=== PATIENT | female | born 1935 | race Caucasian/White ===

== ENCOUNTER 2018-03-04 23:14 | Observation (INO) | payer MEDICARE ==
--- NOTE | 2018-03-05 00:58 | PDOC.FPRHP ---
- History of Present Illness Chief Complaint: left sided numbness History of Present Illness: 82 female presents for evaluation of her 1 day history of left sided numbness. She states the numbness began Monday night around 10:30 PM. She did not mention this to anyone until later in the day on Monday. Her family then convinced her to be evaluated in the ER. She describes the numbness as similar to the anesthetic you receive with dental work. She states the feeling has improved. She notes that she has not had headaches, vision changes, chest pain, n/v/d, fevers, chills, or recent illness. She states that she has had no weakness or trouble walking since this began. No other complaints today. ED Course: Hydralazine Aspirin - Allergies/Adverse Reactions Allergies Allergy/AdvReac Type Severity Reaction Status Date / Time No Known Allergies Allergy Verified 07/20/16 14:16 - Home Medications Medication Instructions Recorded Confirmed Type Gabapentin [Neurontin] 900 mg PO HS 07/20/16 03/05/18 History Lactobacillus Acidophilus 1 capsule PO HS 07/20/16 03/05/18 History [Probiotic] Liraglutide [Victoza 2-Jesus Alberto] 0.6 mg SC HS 07/20/16 03/05/18 History Loperamide HCl [Imodium A-D] 2 mg PO PRN PRN 07/20/16 03/05/18 History Omeprazole 20 mg PO QPM 07/20/16 03/05/18 History diphenhydrAMINE [Benadryl] 25 mg PO Q6HR PRN 07/20/16 03/05/18 History hydrALAZINE HCl 50 mg PO BID 07/20/16 03/05/18 History Furosemide [Lasix] 20 mg PO DAILY PRN 07/23/17 03/05/18 History Aspirin [Ecotrin] 81 mg PO DAILY 03/05/18 03/05/18 History Enalapril Maleate [Vasotec] 5 mg PO BID 03/05/18 03/05/18 History busPIRone HCl [Buspar] 15 mg PO BID 03/05/18 03/05/18 History - History PMHx: DM2, HLD, HTN, CHF, HTN, CKD, Neuropathy. PSHx: 3 hip replacements, bilateral knee replacements, appendectomy. FHx: Non-contributory Social: Patient lives alone with her cat. She has two adult children. She denies tobacco, alcohol, or drug use. - Review of Systems General: denies: fever/chills, weight/appetite/sleep changes Eyes: denies: eye pain ENT: denies: nasal congestion Respiratory: denies: cough, congestion, shortness of breath Cardiovascular: denies: chest pain, palpitation, edema Gastrointestinal: denies: nausea, vomiting, diarrhea, constipation Genitourinary: denies: incontinence Skin: denies: rashes, lesions, jaundice Musculoskeletal: denies: pain, tenderness, stiffness, swelling Neurological: reports: numbness. denies: weakness Psychological: denies: anxiety, depression - Vital signs BP: [161/80] HR: [89] RR: [17] Tmax: [98.1] Pox: [94]% on [RmAir] Wt: [108 kg ] - Physical Exam Constitutional: NAD, awake, alert and oriented HEENT: normocephalic and atraumatic, grossly normal vision, TM's clear and intact, grossly normal hearing, normal nasal mucosa, MMM Neck: supple, trachea midline Chest: no-tender to palpation Heart: RRR, normal S1/S2, no murmurs/rubs/gallops, pulses present -Heart: trace edema bilaterally Lungs: CTAB, no respiratory distress, good air movement, no rales/rhonchi, no wheezing Abdomen: soft, non-tender, bowel sounds present, no masses/distention Musculoskeletal: normal structure, normal tone, ROM grossly normal Neurological: no focal deficit, CN II-XII intact, other (Patient has numbness to upper and lower extremity as well as face on LEFT. Motor neuro exam WNL. No deficits on neuro testing other than sensation.) Skin: no rash/lesions, good turgor, capillary refill <2 seconds Heme/Lymphatic: no unusual bruising or bleeding, no purpura Psychiatric: normal mood and affect, good judgment and insight, intact recent and remote memory FMR H&P: A/P - Problem List (1) TIA (transient ischemic attack) Current Visit: Yes Status: Acute (2) CKD (chronic kidney disease) stage 3, GFR 30-59 ml/min Current Visit: Yes Status: Acute Code(s): N18.3 - CHRONIC KIDNEY DISEASE, STAGE 3 (MODERATE) (3) HLD (hyperlipidemia) Current Visit: Yes Status: Acute Code(s): E78.5 - HYPERLIPIDEMIA, UNSPECIFIED (4) HTN (hypertension) Current Visit: Yes Status: Acute Code(s): I10 - ESSENTIAL (PRIMARY) HYPERTENSION (5) CHF (congestive heart failure) Current Visit: Yes Status: Acute Code(s): I50.9 - HEART FAILURE, UNSPECIFIED (6) Diabetes mellitus Current Visit: No Status: Chronic Code(s): E11.9 - TYPE 2 DIABETES MELLITUS WITHOUT COMPLICATIONS Qualifiers: Diabetes mellitus type: type 2 Diabetes mellitus terminal block assembler insulin use: without terminal block assembler use Diabetes mellitus complication status: with unspecified complications Qualified Code(s): E11.8 - Type 2 diabetes mellitus with unspecified complications - Plan 1) TIA v. CVA r/o - CT head negative. - CTA head/neck, echo, and MRI ordered. - Will also check TSH, Mg, Phos, B12/folate. - Neuro checks q4h. - Cont. ASA, start statin. - Consult neuro 2) T2DM - continue home regimen, - accuchecks AC/HS - check A1c 3) HTN - permissive HTN x 24 hrs 4) HLD - check lipids - start statin 5) CHF - getting echo, - cont. HMs 6) CKDIII - renal fxn appears at baseline - Continue home meds CODE STATUS: FULL CODE Disposition: Stable, Will admit to Observation Stroke. FMR H&P: Upper Level - Pertinent history 82 yo CF pmhx T2DM w/ retinopathy and nephropathy (CKDIII at baseline), HTN, HLD , CHF, and known vascular dz (h/o ischemic colitis) p/w approx 48 hrs of L sided numbness. Pt states that symptoms came on acutely and affected her left face, arm and leg. Denies any obvious weakness but states that it was harder to do things than normal because of the sensation of her limbs "being asleep." Denies any facial droop, speech slurring, gait changes, seizure, JARA, LOC, or head trauma. She has never had similar symptoms before. She is on a daily aspirin but it does not appear that she is on a statin. She only came into the ER because her daughter asked her to. Numbness is somewhat improved tonight but still present. - Pertinent findings Gen: AAO x3, NAD Neck: no bruits CV: RRR, no m/g/r Lungs: CTAB Ext: trace edema b/l, no clubbing or cyanosis, no evidence of DVT Neuro: strength 5/5 b/l upper and lower extremities, CN II-XII intact, subjective decreased sensation to light touch on left side, negative romberg Pulses: 2+ DPs b/l - Plan Date/Time: 03/05/18 0057 I, Justin Lyons MD, have evaluated this patient and agree with findings/plan as outlined by music industry internship resident. Pertinent changes/additions are listed here. 82 yo CF with: 1) Suspected acute neurovascular syndrome, TIA v. CVA r/o: Place in observation to stroke. CT head negative. CTA head/neck, echo, and MRI ordered. Will also check TSH, Mg, Phos, B12/folate. EKG showed 1st degree AV block, LVH, incomplete LBBB, and left axis deviation but no arrhythmias. Neuro checks q4h. Cont. ASA, start statin. Consult neuro. 2) T2DM: continue home regimen, accuchecks AC/HS, check A1c 3) HTN: permissive HTN x 24 hrs 4) HLD: check lipids, start statin 5) CHF: getting echo, cont. HMs 6) CKDIII: renal fxn appears at bedside DVT ppx: lovenox Attending Addendum - Attending Addendum Date/Time: 03/05/18 1052 I personally evaluated the patient and discussed the management with Dr. Kat and Dr. Hansen. I agree with the History, Examination, Assessment and Plan documented above with any addition or exceptions noted below. Patient with MRI showing subacute right thalamic lesion c/w symptoms. Neuro consulted, will evaluate. CTA of carotids ordered. Will cont ASA, start statin , control BP, and consider adding Plavix based on neuro recs. Physical and speech therapy initiated.
[2018-03-05] MEDS ORDERED: Dextrose 50% Abboject 50 ML SYRINGE SLOW IVP PRN (02:29)
[2018-03-05] MEDS ORDERED: Ondansetron ODT 4 MG TAB PO PRN (02:29)
[2018-03-05] MEDS ORDERED: Acetaminophen 325 MG TAB PO PRN (02:29)
[2018-03-05] MEDS ORDERED: HumaLOG 300 UNITS/3 ML VIAL SC PRN (02:29)
[2018-03-05] MEDS ORDERED: Dextrose 5% in Water 1,000 ML IV PRN (02:29)
[2018-03-05 02:42] VITALS: BMI 40.9
[2018-03-05] MEDS ORDERED: diphenhydrAMINE 25 MG CAP PO PRN (03:05)
[2018-03-05] MEDS ORDERED: Loperamide HCl 2 MG CAP PO PRN (03:05)
[2018-03-05 03:12] LABS: Magnesium 1.8 mg/dL (1.6-2.6); Phosphorus 3.2 mg/dL (2.3-4.7)
[2018-03-05 04:45] LABS: Cardiac Risk 4.4 (Less than 4.5)
[2018-03-05 05:35] LABS: Hemoglobin A1c 6.7 % (4.0-6.0)
[2018-03-05 06:40] LABS: Folate (Folic Acid) 4.6 ng/mL (7.0-31.4)
[2018-03-05] MEDS: Aspirin 81 mg Enteric Coated Tablet PO SCH (09:24)
[2018-03-05] MEDS: busPIRone HCl 10 MG TAB PO SCH ×2 (09:24→20:41)
[2018-03-05] MEDS: Folic Acid 1 MG TAB PO SCH (09:24)
[2018-03-05] MEDS: Enoxaparin Sodium 40 MG/0.4 ML SYRINGE SC SCH (09:25)
--- NOTE | 2018-03-05 09:26 | MRI ---
MRI OF THE BRAIN WITHOUT IV CONTRAST: INDICATION: History of TIAs and altered mental status. COMPARISON: CT of the brain dated 03/04/18 at 9:05 p.m. TECHNIQUE: Multiplanar, multisequence MR images were obtained of the brain without IV contrast. FINDINGS: There is a small focus of restricted diffusion with associated T2 hyperintensity involving the right mid thalamus on image 15 of series 3 consistent with a subacute lacunar infarct. This is superimpose d on mild chronic small-vessel white matter ischemic change. The septum pellucidum and third ventric le are midline. No intracranial hemorrhage is demonstrated. The skull and extracranial soft tissues appear within normal limits. There is a small mucous retention cyst seen within the inferior aspect of the right maxillary sinus. There are appropriate flow voids seen within the major intracranial v essels. IMPRESSION: 1. Subacute lacunar infarction involving the right thalamus. 2. Findings were called to Sadie Santizo RN at 9:50 a.m. on 03/05/18. CODE CR POS: JUAN JOSÉ
--- NOTE | 2018-03-05 13:20 | ULT ---
BILATERAL CAROTID DUPLEX ULTRASOUND: DATE: 03/05/18 HISTORY: CVA. TIA. TECHNIQUE: Hall scale ultrasound with color flow and spectral Doppler imaging of the extracranial carotid artery systems performed bilaterally. FINDINGS: There is plaque formation on either side. The peak systolic velocity in the right ICA measures 106 cm/second with an end-diastolic velocity of 25 cm/second and a systolic ratio of 1.91. The peak systolic velocity in the left ICA measures 88 cm/second with an end-diastolic velocity of 19 cm/second and a systolic ratio of 1.24. Flow in both vertebral arteries remains antegrade. IMPRESSION: No evidence of hemodynamically significant stenosis. POS: JUAN JOSÉ
[2018-03-05] MEDS ORDERED: Furosemide 20 MG TAB PO PRN (20:50)
[2018-03-05] MEDS ORDERED: Labetalol HCl 100 MG/20 ML VIAL SLOW IVP PRN (20:59)
[2018-03-05] MEDS ORDERED: Atorvastatin Calcium 40 MG TAB PO SCH (21:00)
[2018-03-05] MEDS ORDERED: (Liraglutide [Victoza 2-Pak] 0.6 MG) SC SCH (21:00)
[2018-03-05] MEDS ORDERED: Lactinex Tablet PO SCH (21:00)
[2018-03-05] MEDS ORDERED: Gabapentin 300 MG CAP PO SCH (21:00)
[2018-03-05] MEDS: hydrALAZINE 25 MG TAB PO SCH (21:55)
[2018-03-05] MEDS ORDERED: Lorazepam 0.5 MG TAB PO PRN (22:57)
--- NOTE | 2018-03-05 23:36 | CON ---
DATE OF CONSULTATION: 03/05/2018 REFERRING PROVIDER: Bryson Kat M.D. REASON FOR CONSULTATION: Left-sided numbness. HISTORY OF PRESENT ILLNESS: Ms. Warner is a pleasant 82-year-old female who has been consulte d for evaluation of left-sided numbness. She reports that on Monday night around 10:30 p.m., she h ad noted sudden onset of left-sided numbness and tingling, this was present from left side of the fac e, arm and leg. She also felt somewhat weaker on her left upper and lower extremity. This prompted her to present to the [facility]. She reports that her weakness, numbness and tinglin g is improving. She denied any vision changes. She denied diplopia, dysarthria, dysphagia, facial d melissa, difficulty with balance, chest pain, palpitation, lightheadedness, or dizziness. PAST MEDICAL HISTORY: Significant for hypertension, diabetes, hyperlipidemia, congestive heart failu re, chronic kidney disease, and neuropathy. PAST SURGICAL HISTORY: Significant for 3 hip replacement surgeries, bilateral knee replacements, rian endectomy. FAMILY HISTORY: Noncontributory. SOCIAL HISTORY: She denies smoking, alcohol use, or illicit drug use. She lives alone. CURRENT MEDICATIONS: Please review MAR. ALLERGIES: No known drug allergies. REVIEW OF SYSTEMS: As mentioned in the HPI, otherwise negative. PHYSICAL EXAMINATION: VITAL SIGNS: Blood pressure of 182/93, pulse of 80, temperature of 97.8, respirations of 16, and O2 sats 93% on room air. GENERAL: Well-developed, well-nourished female in no apparent distress. RESPIRATORY: Clear to auscultation bilaterally. CARDIOVASCULAR: Regular rate and rhythm. NEUROLOGIC: Mental status: The patient is awake, alert, oriented x3. Speech and language: Fluent speech. Cranial nerves: Pupils are 3 mm and reactive. Visual vargas are intact. External muscles are intact. No nystagmus noted. Face is symmetric. Tongue and uvula are midline. Motor exam showe d normal tone and bulk with 5/5 strength in both upper and lower extremities. No pronator drift note d. Sensory: Sensation is intact and symmetric. Deep tendon reflexes are 2+ reflexes in both upper and lower extremities. Babinski: Plantar responses flexion bilaterally. Coordination intact to fin [id number] and finger tapping bilaterally. LABORATORY DATA: Labs are reviewed, which included CBC, coag panel, CMP, which is significant for BU N of 26, creatinine of 1.26, glucose of 182. Total cholesterol of 207, LDL of 131, HDL of 47 and fol ic acid of 4.6, otherwise unremarkable. IMAGING STUDIES: MRI brain without contrast was reviewed, which showed small subacute right thalamic lacunar infarct. Carotid Doppler results were reviewed, which showed no hemodynamically significant stenosis. IMPRESSION: 1. Subacute right thalamic ischemic infarct. 2. Left-sided numbness and weakness converted to #1. 3. Malignant hypertension. Ms. Warner is a pleasant 82-year-old female who presented with 1 day history of left-sided num bness and weakness. She is found to have subacute lacunar infarct involving the right thalamic regio n. This is likely secondary to poorly controlled hypertension. At this time, I will recommend start treating of her blood pressure with a goal 120 to 140 systolic and 80 to 85 diastolic. I discussed about starting her back on aspirin 325 mg daily for secondary stroke prevention; however, she reports that recently she has been having abdominal pain, has been undergoing extensive workup by GI special ist and because of that reason, she has been asked to decrease the dose of aspirin to 81 mg. I have advised her that once the workup is completed and there is no gastritis or gastric ulcers, then she m ay need to be started back on aspirin 325 mg daily for secondary stroke prevention. Thank you for your consultation.
[2018-03-06] MEDS ORDERED: Labetalol HCl 100 MG/20 ML VIAL SLOW IVP PRN (04:57)
[2018-03-06 06:43] LABS: Cardiac Risk 4.6 (Less than 4.5)
--- NOTE | 2018-03-06 07:25 | EKG ---
Test Reason : Blood Pressure : / mmHG Vent. Rate : 077 BPM Atrial Rate : 077 BPM P-R Int : 264 ms QRS Dur : 108 ms QT Int : 386 ms P-R-T Axes : 052 -28 098 degrees QTc Int : 436 ms Sinus rhythm with 1st degree A-V block Abnormal QRS-T angle, consider primary T wave abnormality Abnormal ECG When compared with ECG of 24-JUL-2017 04:56, Criteria for Septal infarct are no longer Present T wave inversion no longer evident in Anterior leads QT has shortened Confirmed by DR. Janice MARQUEZ ([id number]) on 03/06/2018 7:25:08 AM Referred By: MELISSA Confirmed By:DR. Janice MARQUEZ
[2018-03-06] MEDS: busPIRone HCl 10 MG TAB PO SCH (08:28)
[2018-03-06] MEDS: hydrALAZINE 25 MG TAB PO SCH (08:29)
[2018-03-06] MEDS: Folic Acid 1 MG TAB PO SCH (08:30)
[2018-03-06] MEDS: Aspirin 81 mg Enteric Coated Tablet PO SCH (08:30)
[2018-03-06] MEDS: Enoxaparin Sodium 40 MG/0.4 ML SYRINGE SC SCH (08:31)
--- NOTE | 2018-03-06 08:57 | PDOC.FM ---
- Subjective Subjective: Pt states L sided sx have improved but persist. C/o anxiety mildly relieved with ativan. Has not worked with PT/OT - Objective Vital Signs & Weight: Vital Signs (12 hours) Temp Pulse Resp BP BP BP Pulse Ox 03/06/18 08:29 85 180/100 H 03/06/18 08:00 97.9 F 85 16 180/100 H 96 03/06/18 06:27 163/79 H 03/06/18 03:09 98.3 F 75 16 175/88 H 95 03/06/18 00:17 98.3 F 90 16 134/83 96 03/05/18 22:53 203/112 H 03/05/18 21:55 84 218/125 H Weight Admit Weight 104.78 kg Weight 106.095 kg I&O: 03/05/18 03/06/18 03/07/18 06:59 06:59 06:59 Intake Total 480 2500 Balance 480 2500 <Kunal Hansen - Last Filed: 03/06/18 08:55> - Objective Vital Signs & Weight: Weight Admit Weight 104.78 kg Weight 106.095 kg I&O: 03/06/18 03/07/18 03/08/18 06:59 06:59 06:59 Intake Total 2500 1000 Balance 2500 1000 <Bella Tracey - Last Filed: 03/07/18 07:29> Phys Exam - Physical Examination Constitutional: NAD HEENT: PERRLA, moist MMs, oral pharynx no lesions Neck: no nodes, no JVD, supple Respiratory: no wheezing, no rales, no rhonchi, clear to auscultation bilateral Cardiovascular: RRR, no significant murmur, no rub Gastrointestinal: soft, non-tender, no distention obese Musculoskeletal: no edema, pulses present Neurological: non-focal sensation abnormal on Le side, strength preserved Lymphatic: no nodes Psychiatric: normal affect, A&O x 3 Skin: no rash, normal turgor, cap refill <2 seconds <Kunal Hansen - Last Filed: 03/06/18 08:55> Dx/Plan (1) CVA (cerebral vascular accident) Code(s): I63.9 - CEREBRAL INFARCTION, UNSPECIFIED Status: Acute QualifierTitle: Laterality of affected vessel: right (2) CKD (chronic kidney disease) stage 3, GFR 30-59 ml/min Code(s): N18.3 - CHRONIC KIDNEY DISEASE, STAGE 3 (MODERATE) Status: Acute (3) CHF (congestive heart failure) Code(s): I50.9 - HEART FAILURE, UNSPECIFIED Status: Chronic (4) HLD (hyperlipidemia) Code(s): E78.5 - HYPERLIPIDEMIA, UNSPECIFIED Status: Chronic (5) HTN (hypertension) Code(s): I10 - ESSENTIAL (PRIMARY) HYPERTENSION Status: Chronic (6) Anxiety Code(s): F41.9 - ANXIETY DISORDER, UNSPECIFIED Status: Chronic (7) Hypertensive emergency Code(s): I16.1 - HYPERTENSIVE EMERGENCY Status: Chronic - Plan Plan: # R Thalamic CVA - Will continue low dose ASA until w/u finished for GI issues then increase dose - On Statin - PT/OT # Hypertensive Urgency - Suffers from refractory HTN - Home meds restarted, Labetalol PRN # CAD - Stable, continue home medications # Anxiety - Recieved 1 dose Ativan overnight # DM2 - BG controlled # Hx/o Ischemic Colitis - In progress outpatient workup; no acute issues DVT ppx: lovenox <Kunal Hansen - Last Filed: 03/06/18 08:55> (1) TIA (transient ischemic attack) Status: Acute (2) CKD (chronic kidney disease) stage 3, GFR 30-59 ml/min Code(s): N18.3 - CHRONIC KIDNEY DISEASE, STAGE 3 (MODERATE) Status: Acute (3) HLD (hyperlipidemia) Code(s): E78.5 - HYPERLIPIDEMIA, UNSPECIFIED Status: Chronic (4) HTN (hypertension) Code(s): I10 - ESSENTIAL (PRIMARY) HYPERTENSION Status: Chronic (5) CHF (congestive heart failure) Code(s): I50.9 - HEART FAILURE, UNSPECIFIED Status: Chronic (6) Diabetes mellitus Code(s): E11.9 - TYPE 2 DIABETES MELLITUS WITHOUT COMPLICATIONS Status: Chronic Qualifiers: Diabetes mellitus type: type 2 Diabetes mellitus oil heaterman insulin use: without correction use Diabetes mellitus complication status: with unspecified complications Qualified Code(s): E11.8 - Type 2 diabetes mellitus with unspecified complications <Bella Tracey - Last Filed: 03/07/18 07:29> Attending Addendum - Attending Addendum I personally evaluated the patient and discussed the management with Dr. Hansen on 03/06/18. I agree with the History, Examination, Assessment and Plan documented above with any addition or exceptions noted below. Patient seen and examined by neurology. Agree with plan to continue ASA 81 mg once GI workup is complete. Discussed secondary stroke prevention with patient at length, danish. BP control. BPs elevated this morning, will adjust home meds and monitor. Discharge once improved. <Bella Tracey - Last Filed: 03/07/18 07:29>
[2018-03-06] MEDS ORDERED: Amlodipine 10 MG TAB PO SCH (09:00)
[2018-03-06] MEDS ORDERED: hydrALAZINE 20 MG/ML VIAL SLOW IVP SCH (11:30)
[2018-03-06 11:57] VITALS: TEMP 97.2
--- NOTE | 2018-03-07 01:47 | DIS-2 ---
DATE OF ADMISSION: 03/05/2018 DATE OF DISCHARGE: 03/06/2018. RESIDENT: Kunal Hansen DO ADMITTING ATTENDING: Bella Tracey DO DISCHARGE ATTENDING: Bella Tracey DO CONSULTATIONS: Neurology, Chrissy Kenny MD PRIMARY DIAGNOSIS: Right thalamic cerebrovascular accident. SECONDARY DIAGNOSES: Hypertensive urgency, left-sided numbness and tingling, diabetes, coronary artery disease, anxiety, history of ischemic colitis. DISCHARGE MEDICATIONS: New medications: Atorvastatin 40 mg p.o. at bedtime, folic acid 1 mg p.o. daily. Home medications: Aspirin 81 mg daily, BuSpar 15 mg p.o. b.i.d., Benadryl 25 mg p.o. q.6 hours p.r.n., enalapril 5 mg p.o. b.i.d. , furosemide 20 mg p.o. daily, gabapentin 900 mg p.o. at bedtime, hydralazine 50 mg p.o. b.i.d., loperamide 2 mg p.o. p.r.n., Ativan 0.5 mg p.o. q.4 hours p.r.n., pantoprazole 40 mg p.o. q.p.m. scheduled. HISTORY OF PRESENT ILLNESS AND HOSPITAL COURSE: Ms. Warner is an 82-year-old female who initially presented for evaluation with left-sided numbness and tingling, starting Monday night, 03/05/2018, but did not come into the ER until the next day. Initial CT was negative, but brain MRI revealed a right thalamic ischemic insult. Her symptoms did improve throughout her hospital stay , but they did not resolve. These symptoms included minimal weakness on the left side, but mostly paresthesias. She was evaluated by Neurology, they recommended 325 mg of aspirin; however, she is undergoing outpatient workup for GI bleed and chronic GI issues and evaluation for possibly ischemic colitis. For these reasons and this outpatient workup, neurologist recommended continuing 81 mg of aspirin until that workup was complete and she was cleared to increase to 325 mg of aspirin. She was also started on atorvastatin during this hospital visit. Her hypertensive urgency is a chronic problem. She has very refractive blood pressures that are very difficult to control. She is seen by Dr. Duarte, Cardiology who manages her. She is to follow up with him and her primary care doctor upon discharge. Her blood pressure did improve throughout her hospital stay. DISCHARGE INSTRUCTIONS: 1. Location: Home. 2. Diet: Heart healthy diabetic diet. 3. Activity: As tolerated. 4. Followup: Follow up with her primary care doctor and offset pressman, Dr. Duarte. HILL
[2018-03-07 06:33] VITALS: BP 187/117
== END 2018-03-06 16:12 | disposition home or self-care (01) ==
LOC: ERS 23:14 → 2SE 03-05 00:50
PROVIDERS: ADMIT Family Medicine; ATTEND Family Medicine
DX: I63.9 Cerebral infarction, unspecified (principal); I16.0 Hypertensive urgency; I13.0 Hypertensive heart and chronic kidney disease with heart failure and stage 1 through stage 4 chronic kidney disease, or unspecified chronic kidney disease; E11.22 Type 2 diabetes mellitus with diabetic chronic kidney disease; N18.3 Chronic kidney disease, stage 3 (moderate); I50.9 Heart failure, unspecified; E11.40 Type 2 diabetes mellitus with diabetic neuropathy, unspecified; I25.10 Atherosclerotic heart disease of native coronary artery without angina pectoris; F41.9 Anxiety disorder, unspecified; E78.5 Hyperlipidemia, unspecified
CPT/HCPCS: 70551; 80061 ×2; 82607; 82746; 82962 ×3; 83036; 83735; 84100; 84443; 93005; 93306; 93880; 96372 ×2; 96374; 97139 ×4; 99285; G0378; G8978; G8979; G8980; 36415; 36416; 93010; G9162-GN-CH; G9163-GN-CH; J0360; J1650

== ENCOUNTER 2019-12-13 21:00 | Inpatient (IN) | payer MEDICARE ==
[2019-12-13] MEDS ORDERED: Labetalol HCl 100 MG/20 ML VIAL ONE (21:29)
[2019-12-13 21:45] LABS: #Eosinphils 0.1 thou/uL (0.0-0.7); #Lymphocytes 1.2 thou/uL (1.20-3.40); #Monocytes 1.1 thou/uL (0.11-0.59); #Neutrophils 7.7 thou/uL (1.40-6.50); %Basophils 0.2 % (0.0-1.0); %Eosinophils 1.1 % (0.0-10.0); %Lymphocytes 12.2 % (21.0-51.0); %Monocytes 10.8 % (0.0-10.0); %Neutrophils 75.7 % (42.0-75.0); Mean Corpuscular HGB CONC 32.2 g/dL (32.0-36.0); Mean Corpuscular Hemoglobin 28.4 pg (27.0-31.0); Mean Corpuscular Volume 88.3 fL (78.0-98.0); Platelet Count 213 thou/uL (130-400); Red Blood Cell (RBC) Count 4.56 mill/uL (4.20-5.40); White Blood Cell (WBC) Count 10.1 thou/uL (4.8-10.8)
--- NOTE | 2019-12-13 21:46 | RAD ---
XR Chest 1 View Portable HISTORY: Chest pain COMPARISON: 12/05/2016 FINDINGS: The heart size is at upper limits of normal. The lungs are well expanded without focal area s of consolidation, pneumothorax or pleural effusions. IMPRESSION: No radiographic evidence of acute cardiopulmonary process.
[2019-12-13 22:11] LABS: ALT (SGPT) 11 U/L (8-55); AST (SGOT) 15 U/L (5-34); Albumin 3.7 g/dL (3.4-4.8); Alkaline Phosphatase 99 U/L (40-110); Anion Gap 14 mmol/L (10-20); BUN (Urea Nitrogen) 19 mg/dL (9.8-20.1); Bilirubin, Total 0.5 mg/dL (0.2-1.2); Calc. Creatinine Clearance 0 mL/min (70-130); Calcium 9.7 mg/dL (7.8-10.44); Carbon Dioxide 26 mmol/L (23-31); Chloride 100 mmol/L (98-107); Estimated GFR-MDRD 51; Glucose 149 mg/dL (83-110); Lipase 26 U/L (8-78); Potassium 3.9 mmol/L (3.5-5.1); Protein, Total 6.7 g/dL (6.0-8.3); Sodium 136 mmol/L (136-145)
[2019-12-13 22:32] LABS: CKMB 3.5 ng/mL (0-6.6)
[2019-12-13] MEDS ORDERED: Enoxaparin Sodium 100 MG/ML SYRINGE ONE ×2 (22:43→22:46)
[2019-12-13] MEDS ORDERED: niCARdipine 20MG In NaCl 0 MG/0 ML BAG ONE (22:43)
[2019-12-13] MEDS ORDERED: Enoxaparin Sodium 30 MG/0.3 ML SYRINGE ONE ×2 (22:43→22:46)
[2019-12-13] MEDS ORDERED: Enoxaparin Sodium 60 MG/0.6 ML SYRINGE ONE (22:53)
[2019-12-13] MEDS ORDERED: Nitroglycerin 0.4 MG TAB (25 Tab Bottle) SL PRN (23:20)
--- NOTE | 2019-12-13 23:47 | PDOC.EVN ---
Event Note - Event Note Event Note: [id number]
[2019-12-14 01:11] LABS: Troponin I 0.772 ng/mL (< 0.028)
[2019-12-14 01:27] VITALS: BMI 42.5
[2019-12-14] MEDS: niCARdipine 25 MG in Sodium Chloride 0.9% 250 ML 240 ML IVPB SCH ×2 (01:58→09:04)
--- NOTE | 2019-12-14 03:02 | HP ---
CHIEF COMPLAINT: Chest pain. HISTORY OF PRESENT ILLNESS: Ms. Warner is an 84-year-old female with past medical history of congestive heart failure, hyperlipidemia, hypertension, neuropathy, kidney disease, myocardial infarction, CVA, among others, presents to the emergency room with chest pain that started around 5 p.m. The patient was laying down when pain started. Denies any radiation during episode. The pain is described as pressure in nature. The patient was given 324 mg aspirin and nitroglycerin en route to the ED. In the emergency room, the patient was hypertensive with a blood pressure of 212/101. In the emergency room, the patient was given labetalol 20 mg IV push. Blood pressure remained elevated. The patient is about to be started on IV Cardene drip. Also, the patient was given one dose of subcutaneous Lovenox 1 mg/kg. Troponin was elevated at 0.287. EKG, nonspecific changes. The patient is being admitted to hospital for further management. PAST MEDICAL HISTORY: As mentioned above in History of Present Illness. PAST SURGICAL HISTORY: 1. Bilateral hip replacements. 2. Bilateral knee replacements. 3. Appendectomy. SOCIAL HISTORY: Denies smoking or alcohol drinking or drug abuse. FAMILY HISTORY: Reviewed and noncontributory. ALLERGIES: NO KNOWN ALLERGIES. HOME MEDICATIONS: Please see home medication reconciliation form for updated medications. REVIEW OF SYSTEMS: Review of 14 systems negative except what is mentioned in the History of Present Illness. PHYSICAL EXAMINATION: GENERAL: The patient is awake, alert, in mild distress. VITAL SIGNS: Blood pressure 212/101, pulse is 95, respiratory rate is 16, and temperature 98.3. HEAD AND NECK: Normocephalic, atraumatic. NECK: Supple. No JVD. CHEST: Fair bilateral air entry. HEART: S1, S2. Regular. ABDOMEN: Soft, nontender. Bowel sounds present. NEUROLOGIC: Awake, alert, oriented x3. PSYCHIATRIC: Normal mood. EXTREMITIES: No clubbing or cyanosis. LABORATORY DATA: Troponin 0.287. BNP 133. Chest x-ray, no acute findings. ASSESSMENT: 1. Bkh-[id number] elevation myocardial infarction. 2. Hypertensive emergency. 3. Coronary artery disease. 4. Hyperlipidemia. PLAN: 1. Admit to IMCU. 2. Aspirin. 3. Serial troponins. 4. Lovenox was given in the ED 1 mg/kg. 5. Consult Cardiology for evaluation and further recommendations. 6. Keep the patient n.p.o. after midnight until the patient is evaluated by Cardiology. 7. Reconcile home medications. 8. DVT prophylaxis as appropriate. 9. Expected length of stay, 2 midnights or more. Job ID: [id number]
[2019-12-14 04:15] LABS: Cardiac Risk 2.8 (Less than 4.5)
[2019-12-14 04:19] LABS: Troponin I 0.929 ng/mL (< 0.028)
[2019-12-14 08:55] LABS: #Eosinphils 0.1 thou/uL (0.0-0.7); #Lymphocytes 1.2 thou/uL (1.20-3.40); #Monocytes 0.9 thou/uL (0.11-0.59); #Neutrophils 7.1 thou/uL (1.40-6.50); %Basophils 0.4 % (0.0-1.0); %Lymphocytes 12.6 % (21.0-51.0); %Neutrophils 75.9 % (42.0-75.0); Hemoglobin 12.7 g/dL (12.0-16.0); Mean Corpuscular HGB CONC 32.1 g/dL (32.0-36.0); Mean Corpuscular Hemoglobin 28.3 pg (27.0-31.0); Mean Corpuscular Volume 88.3 fL (78.0-98.0); Mean Platelet Volume 8.5 fL (7.4-10.4); Platelet Count 217 thou/uL (130-400); Red Blood Cell (RBC) Count 4.48 mill/uL (4.20-5.40); White Blood Cell (WBC) Count 9.3 thou/uL (4.8-10.8)
[2019-12-14] MEDS ORDERED: Aspirin 325 mg Enteric Coated Tablet PO SCH (09:00)
[2019-12-14 09:06] LABS: Anion Gap 12 mmol/L (10-20); BUN (Urea Nitrogen) 16 mg/dL (9.8-20.1); Calc. Creatinine Clearance 87 mL/min (70-130); Calcium 9.7 mg/dL (7.8-10.44); Carbon Dioxide 29 mmol/L (23-31); Chloride 101 mmol/L (98-107); Estimated GFR-MDRD 62; Glucose 150 mg/dL (83-110); Potassium 3.7 mmol/L (3.5-5.1); Sodium 138 mmol/L (136-145)
--- NOTE | 2019-12-14 09:56 | CON ---
DATE OF CONSULTATION: HISTORY OF PRESENT ILLNESS: Billy Warner is an 84-year-old female from [place] who was brought to the hospital with chest pain without any associated nausea or vomiting. She was given nitroglycerin and aspirin. The patient has history of hypertension. She has not taken her medication. She is now on Cardene drip in the ICU with a blood pressure 160/68, pulse 76, sats 94%, respiratory rate 17. Denies any shortness of breath. Denies any prior history of pneumonia, TB, or asthma. PAST MEDICAL HISTORY: Previous history of known hypertension, history of previous renal disease, history of previous ID, CVA, neuropathy. PREVIOUS SURGERIES: Hip replacement, knee replacement, appendix. HOME MEDICATIONS: 1. Lasix 40. 2. BuSpar 15. 3. Gabapentin 300 t.i.d. 4. Omeprazole 20. 5. Lisinopril 20. 6. Hydralazine 100, 3 times a day. 7. 25 twice a day. ALLERGIES: NONE. SOCIAL AND FAMILY HISTORY: Unremarkable. REVIEW OF SYSTEMS: Ten-point negative. PHYSICAL EXAMINATION: VITAL SIGNS: As noted once again, pulse 85, blood pressure 160/68, sats 95% on room air, respiratory rate 18. GENERAL: She is in no distress. CHEST: No wheezing or crackles. CARDIAC: Normal S1, S2. No gallops. ABDOMEN: No masses. Troponin was elevated at 0.92, glucose 115. White count 9000. Renal function is normal. BNP is normal. Chest x-ray is unremarkable. Her EKG shows septal infarct, age undetermined. IMPRESSION: 1. Chest pain, rule out coronary syndrome. 2. Hypertension. 3. Obesity. 4. Diabetes. Pulmonary russ, I would restart home medication. Await input from Cardiology. Once she is off the Cardene, she can probably be transferred out of the ICU. This is a consultation note, 70 minutes, 50% direct patient care. Job ID: [id number]
[2019-12-14] MEDS ORDERED: Lisinopril 10 MG TAB PO SCH (10:00)
[2019-12-14] MEDS ORDERED: Amlodipine 10 MG TAB PO SCH (10:00)
[2019-12-14] MEDS ORDERED: Metoprolol Tartrate 25 MG TAB PO SCH (10:00)
[2019-12-14] MEDS ORDERED: hydrALAZINE 25 MG TAB PO SCH (10:00)
--- NOTE | 2019-12-14 10:13 | PDOC.HOSPP ---
- Subjective Encounter Date: 12/14/19 Encounter Time: 10:12 Subjective: Ms. Warner was seen today in follow-up of chest pain and elevated blood pressure. She does not have any complaints this morning. She notes a continued " funny feeling" in her chest, otherwise, no complaints. - Objective Vital Signs & Weight: Vital Signs (12 hours) Temp Pulse Resp BP Pulse Ox 12/14/19 07:00 98.1 F 12/14/19 02:30 98 12/14/19 02:00 98.8 F 12/14/19 00:56 88 20 197/131 H 97 12/14/19 00:50 97.8 F 99 Weight Admit Weight 232 lb 9.403 oz Weight 247 lb 7 oz Most Recent Monitor Data Heart Rate from ECG 68 NIBP 164/90 NIBP BP-Mean 114 Respiration from ECG 15 SpO2 93 I&O: 12/13/19 12/14/19 12/15/19 06:59 06:59 06:59 Intake Total 65 240 Output Total 1250 500 Balance -1185 -260 Result Diagrams: 12/14/19 08:20 12/14/19 08:20 Hospitalist ROS - Medication Medications: Active Medications Generic Name Dose Route Start Last Admin Trade Name Freq PRN Reason Stop Dose Admin Nicardipine HCl 25 mg/ Sodium 250 mls @ 0 mls/hr 12/13/19 23:00 12/14/19 09: 04 Chloride IVPB 250 mls INF NADER Administration Protocol Titrate - Exam Eye: PERRL Heart: RRR, no gallops, no rubs, normal peripheral pulses, murmur present, II/IV Respiratory: CTAB, no wheezes, no rales, no ronchi, normal chest expansion Gastrointestinal: soft, non-tender, non-distended, normal bowel sounds, no palpable masses, no hepatomegaly Extremities: no cyanosis, no clubbing, 1+ LE edema (+ 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 Pulses are palpable but diminished, but good capillary refill.) Hosp A/P (1) Hypertensive urgency Code(s): I16.0 - HYPERTENSIVE URGENCY Status: Acute (2) NSTEMI (non-ST elevated myocardial infarction) Code(s): I21.4 - NON-ST ELEVATION (NSTEMI) MYOCARDIAL INFARCTION Status: Acute (3) Diabetes mellitus Code(s): E11.9 - TYPE 2 DIABETES MELLITUS WITHOUT COMPLICATIONS Status: Chronic Qualifiers: Diabetes mellitus type: type 2 Diabetes mellitus long-term insulin use: without long distance billing operator use Diabetes mellitus complication status: with unspecified complications (4) Diabetic neuropathy Code(s): E11.40 - TYPE 2 DIABETES MELLITUS WITH DIABETIC NEUROPATHY, UNSP Status: Chronic Qualifiers: Diabetes mellitus type: type 2 Diabetes mellitus complication detail: with other neurological complication Qualified Code(s): E11.49 - Type 2 diabetes mellitus with other diabetic neurological complication (5) HTN (hypertension) Code(s): I10 - ESSENTIAL (PRIMARY) HYPERTENSION Status: Chronic - Plan * Hypertensive Urgency- She has been weaned off the Cardene drip. * Plan is to re- start her home medications and titrate * Elevated troponin's- this is likely due to demand ischemia, from elevated blood pressures- however she is at risk for CAD- await Cardiology input * DM-
[2019-12-14] MEDS ORDERED: Dextrose 50% Abboject 50 ML SYRINGE SLOW IVP PRN (10:18)
[2019-12-14] MEDS ORDERED: HumaLOG 300 UNITS/3 ML VIAL SC PRN ×2 (10:18)
[2019-12-14] MEDS ORDERED: Dextrose 5% in Water 1,000 ML IV PRN (10:18)
[2019-12-14] MEDS ORDERED: cloNIDine 0.1 MG TAB PO PRN (10:19)
[2019-12-14] MEDS ORDERED: hydrALAZINE 20 MG/ML VIAL SLOW IVP PRN (10:19)
--- NOTE | 2019-12-14 14:06 | CON ---
DATE OF CONSULTATION: 12/14/2019 REASON FOR CONSULTATION: Malignant hypertension, elevated troponin. HISTORY OF PRESENT ILLNESS: Ms. Warner is a very pleasant 84-year-old woman, who is a patient of Dr. Allan Duarte. She recently presented with markedly elevated blood pressure. She states she did not take her medicines yesterday. She also had associated chest pain. She was placed on Cardene drip and placed in the ICU. She is currently chest pain free with blood pressure somewhat improved. PAST MEDICAL HISTORY: Previous MS, CVA, renal disease, neuropathy, and hypertension. MEDICATIONS: 1. BuSpar. 2. Gabapentin. 3. Omeprazole. 4. Lisinopril. 5. Hydralazine. 6. Lasix. ALLERGIES: NONE. SOCIAL HISTORY: No current tobacco or alcohol use. REVIEW OF SYSTEMS: A 10-point review of systems is reviewed and as above, otherwise negative. PHYSICAL EXAMINATION: GENERAL: Patient is a pleasant woman, who is in no acute distress. The patient appears their stated age. VITAL SIGNS: Blood pressure 116/87, pulse 70, and respirations 20. NEUROLOGIC: The patient is alert and oriented x3 with no focal neurologic deficits. HEENT: Sclerae without icterus. Mouth has moist mucous membranes with normal pallor. NECK: No JVD. Carotid upstroke brisk. No bruits bilaterally. LUNGS: Clear to auscultation with unlabored respirations. BACK: No scoliosis or kyphosis. CARDIAC: Regular rate and rhythm with normal S1 and S2. No S3 or S4 noted. No significant rubs, murmurs, thrills, or gallops noted throughout the precordium. PMI is not displaced. There is no parasternal heave. ABDOMEN: Soft, nontender, nondistended. No peritoneal signs present. No hepatosplenomegaly. No abnormal striae. EXTREMITIES: 2+ femoral and 2+ dorsalis pedis pulses. No cyanosis, clubbing, or edema. SKIN: No gross abnormalities. PERTINENT LABORATORY DATA: Hemoglobin 12.7, hematocrit 39.6. Peak troponin 0.9. Creatinine 0.88. IMAGING DATA: EKG, normal sinus rhythm with nonspecific ST-T wave changes. IMPRESSION: 1. Malignant hypertension. 2. Chest pressure. 3. Coronary artery disease. 4. Previous myocardial infarction. RECOMMENDATIONS: At this point, we would recommend aggressive blood pressure management. Her elevated troponin and likely type 2 MS from markedly increase in blood pressure. She is currently chest pain free after blood pressure is improved. Amlodipine has been given. Agree with aspirin and atorvastatin. She has also been placed on lisinopril 10 mg one p.o. b.i.d. We will also continue metoprolol and consider changing to Coreg. Continue to monitor closely. Job ID: [id number]
[2019-12-14] MEDS ORDERED: LIRAGLUTIDE SC SCH (21:00)
[2019-12-14] MEDS ORDERED: Gabapentin 300 MG CAP PO SCH (21:00)
[2019-12-14] MEDS ORDERED: Atorvastatin Calcium 40 MG TAB PO SCH (21:00)
[2019-12-14] MEDS: busPIRone HCl 10 MG TAB PO SCH (21:30)
[2019-12-14] MEDS: hydrALAZINE 25 MG TAB PO SCH (21:34)
[2019-12-14] MEDS: Metoprolol Tartrate 25 MG TAB PO SCH (21:34)
[2019-12-14] MEDS: Lisinopril 10 MG TAB PO SCH (21:39)
[2019-12-15] MEDS ORDERED: Aspirin 81 mg Enteric Coated Tablet PO SCH (09:00)
[2019-12-15] MEDS ORDERED: Amlodipine 10 MG TAB PO SCH (09:00)
[2019-12-15] MEDS ORDERED: Clopidogrel Bisulfate 75 MG TAB PO SCH (09:00)
[2019-12-15] MEDS ORDERED: Folic Acid 1 MG TAB PO SCH (09:00)
[2019-12-15] MEDS: busPIRone HCl 10 MG TAB PO SCH (10:05)
[2019-12-15] MEDS: hydrALAZINE 25 MG TAB PO SCH (10:06)
[2019-12-15] MEDS: Lisinopril 10 MG TAB PO SCH (10:07)
[2019-12-15] MEDS: Metoprolol Tartrate 25 MG TAB PO SCH (10:08)
--- NOTE | 2019-12-15 10:23 | PDOC.HOSPP ---
- Subjective Encounter Date: 12/15/19 Encounter Time: 10:19 Subjective: Ms. Warner was seen today in follow-up of Hypertensive Urgency. She says she feels fine. She does not have any complaints. - Objective Vital Signs & Weight: Vital Signs (12 hours) Temp Pulse Resp BP Pulse Ox 12/15/19 04:00 98.8 F 60 21 H 139/61 93 L Weight Admit Weight 232 lb 9.403 oz Weight 242 lb 1.6 oz Most Recent Monitor Data Heart Rate from ECG 67 NIBP 117/61 NIBP BP-Mean 79 Respiration from ECG 18 SpO2 93 I&O: 12/14/19 12/15/19 12/16/19 06:59 06:59 06:59 Intake Total 65 746 Output Total 1250 1600 Balance -9169 -923 Result Diagrams: 12/14/19 08:20 12/14/19 08:20 Additional Labs: Accuchecks 12/15/19 12/14/19 12/14/19 06:17 21:51 17:35 POC Glucose 147 H 180 H 146 H 12/14/19 12:56 POC Glucose 149 H Hospitalist ROS - Medication Medications: Active Medications Generic Name Dose Route Start Last Admin Trade Name Freq PRN Reason Stop Dose Admin Amlodipine Besylate 10 mg 12/15/19 09:00 12/15/19 10:05 Norvasc PO 10 mg DAILY NADER Administration Aspirin 81 mg 12/15/19 09:00 12/15/19 10:05 Ecotrin PO 81 mg DAILY NADER Administration Atorvastatin Calcium 40 mg 12/14/19 21:00 12/14/19 21:39 Lipitor PO 40 mg HS NADER Administration Buspirone HCl 15 mg 12/14/19 21:00 12/15/19 10:05 Buspar PO 15 mg BID NADER Administration Clonidine 0.1 mg 12/14/19 10:19 12/14/19 12:57 Catapres PO 0.1 mg Q4H PRN Administration SBP > ____ Clopidogrel Bisulfate 75 mg 12/15/19 09:00 12/15/19 10:06 Plavix PO 75 mg DAILY NADER Administration Folic Acid 1 mg 12/15/19 09:00 12/15/19 10:06 Folvite PO 1 mg DAILY NADER Administration Gabapentin 900 mg 12/14/19 21:00 12/14/19 21:34 Neurontin PO 900 mg HS NADER Administration Hydralazine HCl 50 mg 12/14/19 21:00 12/15/19 10:06 Apresoline PO 50 mg BID NADER Administration Nicardipine HCl 25 mg/ Sodium 250 mls @ 0 mls/hr 12/13/19 23:00 12/14/19 09: 04 Chloride IVPB 250 mls INF NADER Administration Protocol Titrate Lisinopril 10 mg 12/14/19 21:00 12/15/19 10:07 Zestril PO 10 mg BID NADER Administration Metoprolol Tartrate 25 mg 12/14/19 21:00 12/15/19 10:08 Lopressor PO 25 mg BID NADER Administration - Exam Eye: PERRL Heart: RRR, no murmur, no gallops, no rubs, normal peripheral pulses Respiratory: CTAB, no wheezes, no rales, no ronchi, normal chest expansion, no tachypnea, normal percussion Gastrointestinal: soft, non-tender, non-distended, normal bowel sounds, no palpable masses, no hepatomegaly Extremities: no cyanosis, 1+ LE edema (trace pedal edema in both lower extremities) Hosp A/P (1) Hypertensive urgency Code(s): I16.0 - HYPERTENSIVE URGENCY Status: Acute (2) NSTEMI (non-ST elevated myocardial infarction) Code(s): I21.4 - NON-ST ELEVATION (NSTEMI) MYOCARDIAL INFARCTION Status: Acute (3) Diabetes mellitus Code(s): E11.9 - TYPE 2 DIABETES MELLITUS WITHOUT COMPLICATIONS Status: Chronic Qualifiers: Diabetes mellitus type: type 2 Diabetes mellitus termite control technician insulin use: without termite control technician use Diabetes mellitus complication status: with unspecified complications (4) Diabetic neuropathy Code(s): E11.40 - TYPE 2 DIABETES MELLITUS WITH DIABETIC NEUROPATHY, UNSP Status: Chronic Qualifiers: Diabetes mellitus type: type 2 Diabetes mellitus complication detail: with other neurological complication Qualified Code(s): E11.49 - Type 2 diabetes mellitus with other diabetic neurological complication (5) HTN (hypertension) Code(s): I10 - ESSENTIAL (PRIMARY) HYPERTENSION Status: Chronic - Plan * Hypertensive Urgency- resolved * HTN- her blood pressure has normalized on her home medications. She was given a dose of Clonidine as needed * Elevated troponins- due to NSTEMI type 2- from hypertensive urgency * Echo results noted * She is stable for discharge home from the Internal medicine standpoint, with Clonidine only as needed in addition to her home medications.
[2019-12-15 12:16] VITALS: TEMP 98.1
--- NOTE | 2019-12-15 13:22 | PRG ---
DATE OF SERVICE: 12/15/2019 SUBJECTIVE: This morning, she is better. She wants to go home. Echo done, which was normal. Vital signs are stable. OBJECTIVE: VITAL SIGNS: Blood pressure is 130/65, saturations 92% room air, respirations 22, temperature 98, and pulse 69. CHEST: No wheezing. CARDIAC: Normal S1 and S2. No gallops. ABDOMEN: No masses. ASSESSMENT AND PLAN: 1. Hypertension resolved on home medication. 2. Chest pain, obesity, and diabetes. Pulmonary russ, she is stable. Disposition as per primary care physician. Pulmonary will follow at a distance. Job ID: [id number]
--- NOTE | 2019-12-15 13:34 | PDOC.CPN ---
- Subjective Date: 12/15/19 Time: 12:10 Interval history: Patient without complaints other than GERD from Prilosec being held. Also sugar high, but Victoza held. Overall feeling better. Wants to go home. - Review of Systems General: denies: fever/chills, weight/appetite/sleep changes, night sweats, fatigue Respiratory: denies: cough, congestion, shortness of breath, exercise intolerance Cardiovascular: denies: chest pain, palpitation, edema, paroxysmal nocturnal dyspnea, orthopnea Gastrointestinal: denies: nausea, vomiting, diarrhea, constipation, abd pain, GI bleeding Musculoskeletal: denies: pain, tenderness, stiffness, swelling, arthritis/ arthralgias Neurological: denies: numbness, syncope, seizure, weakness - Objective Allergies/Adverse Reactions: Allergies Allergy/AdvReac Type Severity Reaction Status Date / Time No Known Allergies Allergy Verified 12/14/19 02:22 Visit Medications: Current Medications Amlodipine Besylate (Norvasc) 10 mg PO DAILY [facility] Last Admin: 12/15/19 10:05 Dose: 10 mg Aspirin (Ecotrin) 81 mg PO DAILY [facility] Last Admin: 12/15/19 10:05 Dose: 81 mg Atorvastatin Calcium (Lipitor) 40 mg PO HS [facility] Last Admin: 12/14/19 21:39 Dose: 40 mg Buspirone HCl (Buspar) 15 mg PO BID [facility] Last Admin: 12/15/19 10:05 Dose: 15 mg Clonidine (Catapres) 0.1 mg PO Q4H PRN PRN Reason: SBP > ____ Last Admin: 12/14/19 12:57 Dose: 0.1 mg Clopidogrel Bisulfate (Plavix) 75 mg PO DAILY [facility] Last Admin: 12/15/19 10:06 Dose: 75 mg Dextrose/Water (Dextrose 50%) 25 gm SLOW IVP PRN PRN PRN Reason: Hypoglycemia Folic Acid (Folvite) 1 mg PO DAILY [facility] Last Admin: 12/15/19 10:06 Dose: 1 mg Gabapentin (Neurontin) 900 mg PO HS [facility] Last Admin: 12/14/19 21:34 Dose: 900 mg Glucagon (Glucagon) 1 mg IM PRN PRN PRN Reason: Hypoglycemia Hydralazine HCl (Apresoline) 50 mg PO BID [facility] Last Admin: 12/15/19 10:06 Dose: 50 mg Hydralazine HCl (Apresoline) 10 mg SLOW IVP Q4H PRN PRN Reason: SBP > 180 and HR < 70 Nicardipine HCl 25 mg/ Sodium (Chloride) 250 mls @ 0 mls/hr IVPB INF [facility]; Protocol Last Admin: 12/14/19 09:04 Dose: 250 mls Dextrose/Water (D5w) 1,000 mls @ 0 mls/hr IV .Q0M PRN PRN Reason: Hypoglycemia Insulin Human Lispro (Humalog) 0 units SC .MODERATE SLIDING SC PRN PRN Reason: Moderate Correctional Scale Insulin Human Lispro (Humalog) 0 units SC .BEDTIME SLIDING SC PRN PRN Reason: Bedtime Correctional Scale Lisinopril (Zestril) 10 mg PO BID [facility] Last Admin: 12/15/19 10:07 Dose: 10 mg Metoprolol Tartrate (Lopressor) 25 mg PO BID [facility] Last Admin: 12/15/19 10:08 Dose: 25 mg Nitroglycerin (Nitrostat) 0.4 mg SL Q5MIN PRN PRN Reason: Chest Pain Non-Formulary Medication (Liraglutide [Victoza 2-Jesus Alberto]) 18.5 mg SC [facility] Vital Signs & Weight: Vital Signs Temp Pulse Resp BP Pulse Ox 12/15/19 12:00 98.1 F 67 22 H 130/65 92 L 12/15/19 07:35 97.5 F L 68 18 136/65 95 12/15/19 04:00 98.8 F 60 21 H 139/61 93 L Admit Weight 232 lb 9.403 oz Weight 242 lb 1.6 oz - Physical Exam General: alert & oriented x3, appears well HEENT: mucus membranes moist Neck: supple neck Cardiac: regular rate and rhythm Lungs: clear to auscultation Neuro: grossly intact Abdomen: unremarkable, soft Extremities: no cyanosis, no clubbing Skin: clear Musculoskeletal: no pain - Labs Result Diagrams: 12/14/19 08:20 12/14/19 08:20 Troponin/CKMB CK-MB (CK-2) 3.5 ng/mL (0-6.6) 12/13/19 21:37 Troponin I 0.929 ng/mL (< 0.028) H* 12/14/19 03:32 - Assessment/Plan Assessment/Plan: 1. HTN Urgency 2. GERD 3. DM-II BPs and ECHO stable. Patient reports BP intially elevated secondary to not taking her medications. Currently stable and asking to go home. Clear from my standpoint. Will write one dose PPI. Otherwise continue Victoza at time of discharge.
[2019-12-15 13:39] VITALS: BP 134/65
--- NOTE | 2019-12-16 14:30 | DIS ---
DATE OF ADMISSION: 12/14/2019 DATE OF DISCHARGE: 12/15/2019 DISCHARGE DISPOSITION: Home. PRIMARY CARE PHYSICIAN: Debra Weinberg MD DISCHARGE DIAGNOSES: 1. Hypertensive urgency. 2. Non-ST elevation myocardial infarction, type 2 secondary to hypertensive urgency. 3. Hypertension. 4. Noncompliance. 5. Hyperlipidemia. 6. Diabetes mellitus, type 2. DISCHARGE MEDICATIONS: 1. Clonidine 0.1 mg q.8 hours as needed for elevated systolic blood pressure greater than 170. 2. Continue Lipitor 40 mg at bedtime. 3. Norvasc 10 mg daily. 4. Tylenol 650 mg q.4 as needed. 5. Omeprazole 20 mg daily. 6. Metoprolol 25 mg twice a day. 7. Imodium as needed. 8. Victoza 18.5 mg subcutaneous daily. 9. Hydralazine 50 mg p.o. twice a day. 10. Neurontin 900 mg at bedtime. 11. Lasix 20 mg daily. 12. Vasotec 10 mg twice a day. 13. Plavix 75 mg daily. 14. BuSpar 15 mg twice daily. 15. Aspirin 81 mg a day. CODE STATUS: Full code. ALLERGIES: NO KNOWN DRUG ALLERGIES. IMAGING: The patient had an echocardiogram in which the ejection fraction was estimated at 55% to 60%. There was some E/A flow reversal noted suggestive of diastolic dysfunction. HOSPITAL COURSE: Ms. Warner is a pleasant 84-year-old female, who was admitted to the hospital after having chest pain. She was found to have an extremely elevated blood pressure with systolics of 212 and diastolics above 100. She was admitted to the ICU and placed on a Cardene drip. Her blood pressure was brought under control with these measures. It was also noted that her troponin was elevated and it peaked at level of 0.929. Cardiology was consulted. She underwent echocardiogram, which showed normal ejection fraction, but evidence of diastolic dysfunction. It is felt that the elevated troponin was a demand ischemia from the high blood pressure and once the blood pressure was controlled, her symptoms resolved. She admitted to Dr. Navarro that she had not taken her medications on the day of the event with her blood pressure being high. When she was placed back on all of her regular medicines, her pressure was actually controlled without any adjustment. She did require a p.r.n. clonidine, however, and for this reason, we will send her home on clonidine in addition to her blood pressure medicines, but only as needed. She was to follow up with her primary care physician in 1 week. Job ID: [id number]
== END 2019-12-15 15:28 | disposition home or self-care (01) | DRG 281 ==
LOC: ERS 21:00 → IMCU/EMU 12-14 00:53 → CCU 12-14 01:44 → 2NO 12-14 20:38
PROVIDERS: ADMIT Internal Medicine; ATTEND Internal Medicine
DX: I16.0 Hypertensive urgency (principal); I21.A1 Myocardial infarction type 2; Z68.41 Body mass index [BMI] 40.0-44.9, adult; E78.5 Hyperlipidemia, unspecified; E11.40 Type 2 diabetes mellitus with diabetic neuropathy, unspecified; Z96.643 Presence of artificial hip joint, bilateral; I13.0 Hypertensive heart and chronic kidney disease with heart failure and stage 1 through stage 4 chronic kidney disease, or unspecified chronic kidney disease; N18.3 Chronic kidney disease, stage 3 (moderate); E11.22 Type 2 diabetes mellitus with diabetic chronic kidney disease; K21.9 Gastro-esophageal reflux disease without esophagitis; I25.10 Atherosclerotic heart disease of native coronary artery without angina pectoris; E66.9 Obesity, unspecified; Z96.653 Presence of artificial knee joint, bilateral; Z91.14 Patient's other noncompliance with medication regimen; Z79.4 Long term (current) use of insulin; Z90.49 Acquired absence of other specified parts of digestive tract; I25.2 Old myocardial infarction; Z86.73 Personal history of transient ischemic attack (TIA), and cerebral infarction without residual deficits
CPT/HCPCS: 36415; 36416; 71045; 80048; 80053; 80061; 82553; 83690; 83880; 84484; 85025; 93005; 93010; 93306; 96372; 96374; J1650; J7050

== ENCOUNTER 2022-03-16 13:42 | Inpatient (IN) | payer MEDICARE ==
[2022-03-16 14:13] LABS: #Eosinphils 0.2 thou/uL (0.0-0.7); #Lymphocytes 0.8 thou/uL (1.20-3.40); #Monocytes 1.3 thou/uL (0.11-0.59); #Neutrophils 10.4 thou/uL (1.40-6.50); %Basophils 0.2 % (0.0-1.0); %Eosinophils 1.4 % (0.0-10.0); %Lymphocytes 6.6 % (21.0-51.0); %Monocytes 10.4 % (0.0-10.0); %Neutrophils 81.3 % (42.0-75.0); Hemoglobin 12.7 g/dL (12.0-16.0); Mean Corpuscular HGB CONC 30.8 g/dL (32.0-36.0); Mean Corpuscular Hemoglobin 30.2 pg (27.0-31.0); Mean Platelet Volume 7.2 fL (7.4-10.4); Platelet Count 210 thou/uL (130-400); RBC Distribution Width 13.6 % (11.5-14.5); White Blood Cell (WBC) Count 12.7 thou/uL (4.8-10.8)
[2022-03-16] MEDS ORDERED: Nitroglycerin 2% Ointment 1 INCH/1 GM Packet ONE ×2 (14:15→16:07)
[2022-03-16] MEDS ORDERED: Furosemide 40 MG/4 ML VIAL ONE (14:15)
[2022-03-16] MEDS ORDERED: Aspirin Chewable 81 MG TAB ONE (14:15)
[2022-03-16 14:40] LABS: ALT (SGPT) 17 U/L (8-55); AST (SGOT) 22 U/L (5-34); Alkaline Phosphatase 94 U/L (40-110); Anion Gap 16 mmol/L (10-20); BUN (Urea Nitrogen) 25 mg/dL (9.8-20.1); Bilirubin, Total 0.9 mg/dL (0.2-1.2); CK (CPK) 83 U/L (29-168); Calc. Creatinine Clearance 0 mL/min (70-130); Calcium 9.5 mg/dL (7.8-10.44); Carbon Dioxide 27 mmol/L (23-31); Chloride 95 mmol/L (98-107); Globulin 2.9 g/dL (2.4-3.5); Glucose 127 mg/dL (83-110); Lipase 24 U/L (8-78); Magnesium 1.7 mg/dL (1.6-2.6); Potassium 4.7 mmol/L (3.5-5.1); Protein, Total 6.9 g/dL (5.8-8.1); Sodium 133 mmol/L (136-145)
[2022-03-16] MEDS ORDERED: Nitroglycerin 0.4 MG TAB 1 EACH ONE (14:47)
[2022-03-16 14:59] LABS: Bacteria/HPF 4+ HPF (None Seen); Bilirubin Negative (Negative); Blood, Urine Negative (Negative); Clarity Clear (Clear); Glucose, Urine (Dipstick) Normal (Negative); Ketone, Urine Negative (Negative); Leukocyte Negative Leu/uL (Negative); Nitrite Negative (Negative); Protein, Urine (Dipstick) 200 mg/dL (Neg-Trace); RBC/HPF 0-3 HPF (0-3); Specific Gravity, Urine 1.025 (1.002-1.036); Squamous Epithelial 0-3 HPF (0-3); Urobilinogen Normal mg/dL (Less than 2); WBC/HPF 0-3 HPF (0-3)
[2022-03-16] MEDS ORDERED: Calcium Carbonate 500 MG ChewTAB PO PRN (16:37)
[2022-03-16] MEDS ORDERED: Acetaminophen 325 MG TAB PO PRN (16:37)
[2022-03-16] MEDS ORDERED: Ondansetron PF 4 MG/2 ML Vial IVP PRN (16:37)
[2022-03-16] MEDS ORDERED: Dextrose 50% Abboject 50 ML SYRINGE SLOW IVP PRN (16:37)
[2022-03-16] MEDS ORDERED: Dextrose 5% in Water 1,000 ML IV PRN (16:37)
[2022-03-16] MEDS ORDERED: Ondansetron ODT 4 MG TAB PO PRN (16:37)
[2022-03-16] MEDS ORDERED: HumaLOG 300 UNITS/3 ML VIAL SC PRN ×2 (16:41)
[2022-03-16 17:23] LABS: Troponin I 0.014 ng/mL (< 0.028)
[2022-03-16 17:39] VITALS: BMI 45.3
[2022-03-16] MEDS ORDERED: hydrALAZINE 20 MG/ML VIAL SLOW IVP PRN (17:51)
[2022-03-16] MEDS ORDERED: Labetalol HCl 100 MG/20 ML VIAL SLOW IVP PRN (17:51)
[2022-03-16 19:12] LABS: SARS-CoV-2 NAA Rapid Test Not Detected (NotDetected)
[2022-03-16 20:57] LABS: Troponin I 0.017 ng/mL (< 0.028)
[2022-03-17] MEDS ORDERED: Furosemide 20 MG TAB PO PRN (00:42)
[2022-03-17] MEDS ORDERED: Spironolactone 25 MG TAB PO PRN (00:45)
[2022-03-17] MEDS: Acetaminophen/Codeine 30-300mg Tablet PO PRN (01:28)
[2022-03-17] MEDS ORDERED: Benzonatate 100 MG CAP PO SCH (02:00)
[2022-03-17] MEDS: Cepastat Lozenges 1 LOZ PO PRN ×5 (04:54→21:01)
[2022-03-17 04:59] LABS: #Eosinphils 0.1 thou/uL (0.0-0.7); #Lymphocytes 1.1 thou/uL (1.20-3.40); #Neutrophils 10.2 thou/uL (1.40-6.50); %Basophils 0.1 % (0.0-1.0); %Eosinophils 0.8 % (0.0-10.0); %Lymphocytes 8.5 % (21.0-51.0); %Monocytes 8.3 % (0.0-10.0); %Neutrophils 82.4 % (42.0-75.0); Hemoglobin 11.8 g/dL (12.0-16.0); Mean Corpuscular HGB CONC 30.8 g/dL (32.0-36.0); Mean Corpuscular Hemoglobin 30.3 pg (27.0-31.0); Mean Corpuscular Volume 98.3 fL (78.0-98.0); Mean Platelet Volume 7.6 fL (7.4-10.4); Platelet Count 200 thou/uL (130-400); RBC Distribution Width 13.7 % (11.5-14.5); White Blood Cell (WBC) Count 12.3 thou/uL (4.8-10.8)
[2022-03-17 05:17] LABS: Anion Gap 10 mmol/L (10-20); BUN (Urea Nitrogen) 26 mg/dL (9.8-20.1); Calc. Creatinine Clearance 70 mL/min (70-130); Calcium 9.4 mg/dL (7.8-10.44); Carbon Dioxide 35 mmol/L (23-31); Chloride 93 mmol/L (98-107); Glucose 122 mg/dL (83-110); Potassium 4.7 mmol/L (3.5-5.1); Sodium 133 mmol/L (136-145)
[2022-03-17] MEDS ORDERED: Spironolactone 25 MG TAB PO SCH (09:00)
[2022-03-17] MEDS ORDERED: Lisinopril 10 MG TAB PO SCH ×2 (09:00→11:00)
[2022-03-17] MEDS ORDERED: Furosemide 40 MG/4 ML VIAL SLOW IVP SCH ×2 (09:00→15:15)
[2022-03-17] MEDS: busPIRone HCl 10 MG TAB PO SCH ×2 (09:44→20:53)
[2022-03-17] MEDS: Benzonatate 100 MG CAP PO SCH ×3 (09:45→20:53)
[2022-03-17] MEDS: guaiFENesin ER 600 MG TAB PO SCH ×2 (09:45→20:54)
[2022-03-17] MEDS: Folic Acid 1 MG TAB PO SCH (09:45)
[2022-03-17] MEDS: Metoprolol Tartrate 25 MG TAB PO SCH ×2 (09:45→20:56)
[2022-03-17] MEDS: Enoxaparin Sodium 40 MG/0.4 ML SYRINGE SC SCH (09:45)
[2022-03-17] MEDS: Amlodipine 10 MG TAB PO SCH (09:45)
[2022-03-17] MEDS: Clopidogrel Bisulfate 75 MG TAB PO SCH (09:45)
[2022-03-17] MEDS ORDERED: Non-Formulary Item 1 EACH (Hydralazine Hcl [Hydralazine Hcl] 100 MG Tablet) PO PRN (10:48)
[2022-03-17] MEDS ORDERED: hydrALAZINE 25 MG TAB PO PRN (11:00)
[2022-03-17] MEDS: Lisinopril 10 MG TAB PO SCH (20:55)
[2022-03-17] MEDS: Aquaphor 10 GM TUBE TOP SCH (20:56)
[2022-03-17] MEDS ORDERED: Gabapentin 300 MG CAP PO SCH (21:00)
[2022-03-17] MEDS ORDERED: Atorvastatin Calcium 40 MG TAB PO SCH (21:00)
[2022-03-18 04:17] LABS: #Eosinphils 0.1 thou/uL (0.0-0.7); #Lymphocytes 0.9 thou/uL (1.20-3.40); #Monocytes 1.7 thou/uL (0.11-0.59); #Neutrophils 10.7 thou/uL (1.40-6.50); %Basophils 0.2 % (0.0-1.0); %Eosinophils 0.6 % (0.0-10.0); %Lymphocytes 6.9 % (21.0-51.0); %Monocytes 12.6 % (0.0-10.0); %Neutrophils 79.7 % (42.0-75.0); Hemoglobin 12.4 g/dL (12.0-16.0); Mean Corpuscular HGB CONC 30.7 g/dL (32.0-36.0); Mean Corpuscular Hemoglobin 30.1 pg (27.0-31.0); Mean Corpuscular Volume 98.1 fL (78.0-98.0); Mean Platelet Volume 7.3 fL (7.4-10.4); Platelet Count 178 thou/uL (130-400); RBC Distribution Width 13.6 % (11.5-14.5); Red Blood Cell (RBC) Count 4.11 mill/uL (4.20-5.40); White Blood Cell (WBC) Count 13.5 thou/uL (4.8-10.8)
[2022-03-18 04:31] LABS: Anion Gap 14 mmol/L (10-20); BUN (Urea Nitrogen) 22 mg/dL (9.8-20.1); Calc. Creatinine Clearance 67 mL/min (70-130); Calcium 9.5 mg/dL (7.8-10.44); Carbon Dioxide 31 mmol/L (23-31); Chloride 93 mmol/L (98-107); Glucose 151 mg/dL (83-110); Potassium 4.1 mmol/L (3.5-5.1); Sodium 134 mmol/L (136-145)
[2022-03-18] MEDS ORDERED: Furosemide 40 MG TAB PO SCH (07:30)
[2022-03-18] MEDS ORDERED: Furosemide 40 MG/4 ML VIAL SLOW IVP SCH (09:30)
[2022-03-18] MEDS: Amlodipine 10 MG TAB PO SCH (10:01)
[2022-03-18] MEDS: Enoxaparin Sodium 40 MG/0.4 ML SYRINGE SC SCH (10:02)
[2022-03-18] MEDS: Clopidogrel Bisulfate 75 MG TAB PO SCH (10:02)
[2022-03-18] MEDS: busPIRone HCl 10 MG TAB PO SCH ×2 (10:02→21:17)
[2022-03-18] MEDS: Benzonatate 100 MG CAP PO SCH ×3 (10:02→21:18)
[2022-03-18] MEDS: Aquaphor 10 GM TUBE TOP SCH ×2 (10:02→21:16)
[2022-03-18] MEDS: Folic Acid 1 MG TAB PO SCH (10:03)
[2022-03-18] MEDS: Metoprolol Tartrate 25 MG TAB PO SCH ×2 (10:03→21:17)
[2022-03-18] MEDS: hydrALAZINE 25 MG TAB PO SCH ×3 (10:03→21:17)
[2022-03-18] MEDS: guaiFENesin ER 600 MG TAB PO SCH (10:03)
[2022-03-18] MEDS: Lisinopril 10 MG TAB PO SCH ×2 (10:03→21:17)
[2022-03-18] MEDS: Acetaminophen/Codeine 30-300mg Tablet PO PRN ×2 (12:10→18:24)
[2022-03-18] MEDS ORDERED: Calcium Carbonate 500 MG ChewTAB PO PRN (15:50)
[2022-03-18] MEDS ORDERED: HumaLOG 300 UNITS/3 ML VIAL SC PRN (15:52)
[2022-03-18] MEDS ORDERED: Furosemide 20 MG TAB PO PRN (15:53)
[2022-03-18] MEDS ORDERED: Ondansetron ODT 4 MG TAB PO PRN (15:53)
[2022-03-18] MEDS ORDERED: Ondansetron PF 4 MG/2 ML Vial IVP PRN (15:53)
[2022-03-18] MEDS ORDERED: Spironolactone 25 MG TAB PO PRN (15:54)
[2022-03-18] MEDS ORDERED: Labetalol HCl 100 MG/20 ML VIAL SLOW IVP PRN (15:54)
[2022-03-18] MEDS ORDERED: hydrALAZINE 25 MG TAB PO SCH (16:00)
[2022-03-18] MEDS ORDERED: Benzonatate 100 MG CAP PO SCH (16:00)
[2022-03-18] MEDS: Cepastat Lozenges 1 LOZ PO PRN (18:24)
[2022-03-18] MEDS ORDERED: Aquaphor 10 GM TUBE TOP SCH (21:00)
[2022-03-18] MEDS ORDERED: guaiFENesin ER 600 MG TAB PO SCH (21:00)
[2022-03-18] MEDS: Atorvastatin Calcium 40 MG TAB PO SCH (21:16)
[2022-03-18] MEDS: Gabapentin 300 MG CAP PO SCH (21:16)
[2022-03-18] MEDS: guaiFENesin/DM ER PO SCH (21:17)
[2022-03-19] MEDS: hydrALAZINE 20 MG/ML VIAL SLOW IVP PRN (04:15)
[2022-03-19 04:35] LABS: #Lymphocytes 0.9 thou/uL (1.20-3.40); #Monocytes 1.8 thou/uL (0.11-0.59); #Neutrophils 11.2 thou/uL (1.40-6.50); %Basophils 0.1 % (0.0-1.0); %Eosinophils 0.4 % (0.0-10.0); %Lymphocytes 6.6 % (21.0-51.0); %Monocytes 13.1 % (0.0-10.0); %Neutrophils 79.9 % (42.0-75.0); Hemoglobin 11.4 g/dL (12.0-16.0); Mean Corpuscular HGB CONC 31.4 g/dL (32.0-36.0); Mean Corpuscular Hemoglobin 30.3 pg (27.0-31.0); Mean Corpuscular Volume 96.7 fL (78.0-98.0); Mean Platelet Volume 7.6 fL (7.4-10.4); Platelet Count 177 thou/uL (130-400); RBC Distribution Width 13.5 % (11.5-14.5); Red Blood Cell (RBC) Count 3.74 mill/uL (4.20-5.40)
[2022-03-19 04:56] LABS: Anion Gap 13 mmol/L (10-20); BUN (Urea Nitrogen) 26 mg/dL (9.8-20.1); Calc. Creatinine Clearance 65 mL/min (70-130); Calcium 8.9 mg/dL (7.8-10.44); Carbon Dioxide 34 mmol/L (23-31); Chloride 90 mmol/L (98-107); Glucose 162 mg/dL (83-110); Sodium 133 mmol/L (136-145)
[2022-03-19] MEDS: Cepastat Lozenges 1 LOZ PO PRN (06:37)
[2022-03-19] MEDS: Folic Acid 1 MG TAB PO SCH (10:48)
[2022-03-19] MEDS: busPIRone HCl 10 MG TAB PO SCH ×2 (10:48→20:41)
[2022-03-19] MEDS: Clopidogrel Bisulfate 75 MG TAB PO SCH (10:48)
[2022-03-19] MEDS: Benzonatate 100 MG CAP PO SCH ×3 (10:48→20:41)
[2022-03-19] MEDS: Amlodipine 10 MG TAB PO SCH (10:48)
[2022-03-19] MEDS: Aquaphor 10 GM TUBE TOP SCH ×2 (10:48→20:42)
[2022-03-19] MEDS: Enoxaparin Sodium 40 MG/0.4 ML SYRINGE SC SCH (10:48)
[2022-03-19] MEDS: hydrALAZINE 25 MG TAB PO SCH ×3 (10:49→20:41)
[2022-03-19] MEDS: Metoprolol Tartrate 25 MG TAB PO SCH ×2 (10:49→20:41)
[2022-03-19] MEDS: guaiFENesin/DM ER PO SCH ×2 (10:49→20:42)
[2022-03-19] MEDS: Lisinopril 10 MG TAB PO SCH ×2 (10:49→20:42)
[2022-03-19] MEDS ORDERED: Empagliflozin 10 MG TAB PO SCH (14:15)
[2022-03-19] MEDS: Furosemide 40 MG/4 ML VIAL SLOW IVP SCH (16:06)
[2022-03-19] MEDS: Gabapentin 300 MG CAP PO SCH (20:40)
[2022-03-19] MEDS: Atorvastatin Calcium 40 MG TAB PO SCH (20:42)
[2022-03-19] MEDS: Acetaminophen 325 MG TAB PO PRN (20:45)
[2022-03-20 04:33] LABS: #Lymphocytes 0.8 thou/uL (1.20-3.40); #Monocytes 1.6 thou/uL (0.11-0.59); #Neutrophils 10.3 thou/uL (1.40-6.50); %Basophils 0.1 % (0.0-1.0); %Eosinophils 0.4 % (0.0-10.0); %Monocytes 12.5 % (0.0-10.0); %Neutrophils 81.1 % (42.0-75.0); Hemoglobin 11.7 g/dL (12.0-16.0); Mean Corpuscular HGB CONC 32.2 g/dL (32.0-36.0); Mean Corpuscular Hemoglobin 31.1 pg (27.0-31.0); Mean Corpuscular Volume 96.7 fL (78.0-98.0); Mean Platelet Volume 7.7 fL (7.4-10.4); Platelet Count 180 thou/uL (130-400); RBC Distribution Width 13.3 % (11.5-14.5); Red Blood Cell (RBC) Count 3.76 mill/uL (4.20-5.40); White Blood Cell (WBC) Count 12.7 thou/uL (4.8-10.8)
[2022-03-20 05:14] LABS: Anion Gap 16 mmol/L (10-20); BUN (Urea Nitrogen) 29 mg/dL (9.8-20.1); Calc. Creatinine Clearance 59 mL/min (70-130); Calcium 8.7 mg/dL (7.8-10.44); Carbon Dioxide 30 mmol/L (23-31); Chloride 91 mmol/L (98-107); Glucose 147 mg/dL (83-110); Potassium 3.9 mmol/L (3.5-5.1); Sodium 133 mmol/L (136-145)
[2022-03-20] MEDS: Furosemide 40 MG/4 ML VIAL SLOW IVP SCH ×2 (06:01→16:46)
[2022-03-20] MEDS: Benzonatate 100 MG CAP PO SCH ×3 (10:07→20:42)
[2022-03-20] MEDS: Enoxaparin Sodium 40 MG/0.4 ML SYRINGE SC SCH (10:07)
[2022-03-20] MEDS: busPIRone HCl 10 MG TAB PO SCH ×2 (10:07→20:42)
[2022-03-20] MEDS: Clopidogrel Bisulfate 75 MG TAB PO SCH (10:07)
[2022-03-20] MEDS: Aquaphor 10 GM TUBE TOP SCH ×2 (10:07→20:43)
[2022-03-20] MEDS: Amlodipine 10 MG TAB PO SCH (10:07)
[2022-03-20] MEDS: Empagliflozin 10 MG TAB PO SCH (10:07)
[2022-03-20] MEDS: Folic Acid 1 MG TAB PO SCH (10:07)
[2022-03-20] MEDS: hydrALAZINE 25 MG TAB PO SCH ×3 (10:08→20:43)
[2022-03-20] MEDS: Metoprolol Tartrate 25 MG TAB PO SCH ×2 (10:08→20:43)
[2022-03-20] MEDS: guaiFENesin/DM ER PO SCH ×2 (10:08→20:42)
[2022-03-20] MEDS: Lisinopril 10 MG TAB PO SCH (10:12)
[2022-03-20] MEDS ORDERED: Albuterol Sulfate 2.5 mg/3 ml Neb NEB PRN (10:27)
[2022-03-20] MEDS ORDERED: Spironolactone 25 MG TAB PO SCH (10:30)
[2022-03-20] MEDS ORDERED: Albuterol Sulfate 2.5 mg/3 ml Neb NEB SCH (11:15)
[2022-03-20] MEDS: Acetaminophen/Codeine 30-300mg Tablet PO PRN (16:46)
[2022-03-20] MEDS: Atorvastatin Calcium 40 MG TAB PO SCH (20:42)
[2022-03-20] MEDS: Gabapentin 300 MG CAP PO SCH (20:42)
[2022-03-21 05:03] LABS: #Eosinphils 0.1 thou/uL (0.0-0.7); #Monocytes 1.3 thou/uL (0.11-0.59); #Neutrophils 9.2 thou/uL (1.40-6.50); %Eosinophils 0.6 % (0.0-10.0); %Lymphocytes 8.7 % (21.0-51.0); %Monocytes 11.5 % (0.0-10.0); %Neutrophils 79.2 % (42.0-75.0); Hemoglobin 11.1 g/dL (12.0-16.0); Mean Corpuscular HGB CONC 32.3 g/dL (32.0-36.0); Mean Corpuscular Volume 96.2 fL (78.0-98.0); Mean Platelet Volume 7.9 fL (7.4-10.4); Platelet Count 201 thou/uL (130-400); RBC Distribution Width 13.2 % (11.5-14.5); Red Blood Cell (RBC) Count 3.58 mill/uL (4.20-5.40); White Blood Cell (WBC) Count 11.6 thou/uL (4.8-10.8)
[2022-03-21 05:21] LABS: Anion Gap 16 mmol/L (10-20); BUN (Urea Nitrogen) 38 mg/dL (9.8-20.1); Calc. Creatinine Clearance 52 mL/min (70-130); Carbon Dioxide 33 mmol/L (23-31); Chloride 91 mmol/L (98-107); Glucose 143 mg/dL (83-110); Potassium 3.6 mmol/L (3.5-5.1); Sodium 136 mmol/L (136-145)
[2022-03-21] MEDS: Furosemide 40 MG/4 ML VIAL SLOW IVP SCH ×2 (05:55→15:16)
[2022-03-21] MEDS: Spironolactone 25 MG TAB PO SCH (07:55)
[2022-03-21] MEDS: Enoxaparin Sodium 40 MG/0.4 ML SYRINGE SC SCH (09:13)
[2022-03-21] MEDS: guaiFENesin/DM ER PO SCH ×2 (09:14→21:18)
[2022-03-21] MEDS: Folic Acid 1 MG TAB PO SCH (09:14)
[2022-03-21] MEDS: Amlodipine 10 MG TAB PO SCH (09:14)
[2022-03-21] MEDS: Valsartan 80 MG TAB PO SCH (09:14)
[2022-03-21] MEDS: Metoprolol Tartrate 25 MG TAB PO SCH ×2 (09:14→21:19)
[2022-03-21] MEDS: hydrALAZINE 25 MG TAB PO SCH ×3 (09:15→21:19)
[2022-03-21] MEDS: Benzonatate 100 MG CAP PO SCH ×3 (09:15→21:18)
[2022-03-21] MEDS: busPIRone HCl 10 MG TAB PO SCH ×2 (09:15→21:19)
[2022-03-21] MEDS: Empagliflozin 10 MG TAB PO SCH (09:15)
[2022-03-21] MEDS: Clopidogrel Bisulfate 75 MG TAB PO SCH (09:15)
[2022-03-21] MEDS: Aquaphor 10 GM TUBE TOP SCH ×2 (09:16→21:20)
[2022-03-21] MEDS: HumaLOG 300 UNITS/3 ML VIAL SC PRN ×2 (12:44→17:58)
[2022-03-21] MEDS: Cepastat Lozenges 1 LOZ PO PRN (19:32)
[2022-03-21] MEDS: Gabapentin 300 MG CAP PO SCH (21:18)
[2022-03-21] MEDS: Atorvastatin Calcium 40 MG TAB PO SCH (21:19)
[2022-03-21] MEDS: Acetaminophen/Codeine 30-300mg Tablet PO PRN (21:25)
[2022-03-22 04:48] LABS: #Eosinphils 0.2 thou/uL (0.0-0.7); #Lymphocytes 0.9 thou/uL (1.20-3.40); #Monocytes 1.3 thou/uL (0.11-0.59); #Neutrophils 7.6 thou/uL (1.40-6.50); %Basophils 0.1 % (0.0-1.0); %Lymphocytes 8.9 % (21.0-51.0); %Monocytes 12.8 % (0.0-10.0); %Neutrophils 76.1 % (42.0-75.0); Hemoglobin 11.7 g/dL (12.0-16.0); Mean Corpuscular HGB CONC 32.1 g/dL (32.0-36.0); Mean Corpuscular Volume 96.6 fL (78.0-98.0); Mean Platelet Volume 7.9 fL (7.4-10.4); Platelet Count 213 thou/uL (130-400); RBC Distribution Width 13.3 % (11.5-14.5); Red Blood Cell (RBC) Count 3.78 mill/uL (4.20-5.40)
[2022-03-22 05:18] LABS: Anion Gap 15 mmol/L (10-20); BUN (Urea Nitrogen) 44 mg/dL (9.8-20.1); Calc. Creatinine Clearance 46 mL/min (70-130); Calcium 9.2 mg/dL (7.8-10.44); Carbon Dioxide 35 mmol/L (23-31); Chloride 91 mmol/L (98-107); Glucose 135 mg/dL (83-110); Potassium 3.5 mmol/L (3.5-5.1); Sodium 137 mmol/L (136-145)
[2022-03-22] MEDS: Furosemide 40 MG/4 ML VIAL SLOW IVP SCH (05:54)
[2022-03-22] MEDS: hydrALAZINE 25 MG TAB PO SCH ×3 (08:54→20:45)
[2022-03-22] MEDS: Metoprolol Tartrate 25 MG TAB PO SCH ×2 (08:55→20:45)
[2022-03-22] MEDS: Amlodipine 10 MG TAB PO SCH (08:55)
[2022-03-22] MEDS: Valsartan 80 MG TAB PO SCH (08:55)
[2022-03-22] MEDS: Spironolactone 25 MG TAB PO SCH (08:58)
[2022-03-22] MEDS: busPIRone HCl 10 MG TAB PO SCH ×2 (08:58→20:43)
[2022-03-22] MEDS: Enoxaparin Sodium 40 MG/0.4 ML SYRINGE SC SCH (08:58)
[2022-03-22] MEDS: Empagliflozin 10 MG TAB PO SCH (08:58)
[2022-03-22] MEDS: Folic Acid 1 MG TAB PO SCH (08:58)
[2022-03-22] MEDS: Clopidogrel Bisulfate 75 MG TAB PO SCH (08:58)
[2022-03-22] MEDS: Benzonatate 100 MG CAP PO SCH ×3 (08:58→20:43)
[2022-03-22] MEDS: guaiFENesin/DM ER PO SCH ×2 (08:58→20:44)
[2022-03-22] MEDS: Aquaphor 10 GM TUBE TOP SCH ×2 (08:59→20:42)
[2022-03-22] MEDS: HumaLOG 300 UNITS/3 ML VIAL SC PRN ×2 (11:29→17:12)
[2022-03-22] MEDS: Acetaminophen/Codeine 30-300mg Tablet PO PRN ×2 (11:29→20:45)
[2022-03-22] MEDS ORDERED: DOBUTamine 500 mg/250 ml 250 ML IVPB SCH (12:30)
[2022-03-22] MEDS ORDERED: Sodium Chloride 0.9% 250 ML IV SCH (13:15)
[2022-03-22 18:40] LABS: Anion Gap 17 mmol/L (10-20); BUN (Urea Nitrogen) 41 mg/dL (9.8-20.1); Calc. Creatinine Clearance 50 mL/min (70-130); Calcium 9.4 mg/dL (7.8-10.44); Carbon Dioxide 31 mmol/L (23-31); Chloride 93 mmol/L (98-107); Glucose 192 mg/dL (83-110); Potassium 4.1 mmol/L (3.5-5.1); Sodium 137 mmol/L (136-145)
[2022-03-22] MEDS: Atorvastatin Calcium 40 MG TAB PO SCH (20:42)
[2022-03-22] MEDS: Gabapentin 300 MG CAP PO SCH (20:44)
[2022-03-22] MEDS: Cepastat Lozenges 1 LOZ PO PRN (20:45)
[2022-03-23 04:42] LABS: #Eosinphils 0.2 thou/uL (0.0-0.7); #Lymphocytes 0.7 thou/uL (1.20-3.40); #Neutrophils 6.8 thou/uL (1.40-6.50); %Eosinophils 2.7 % (0.0-10.0); %Lymphocytes 8.3 % (21.0-51.0); %Monocytes 10.9 % (0.0-10.0); %Neutrophils 78.1 % (42.0-75.0); Hemoglobin 11.1 g/dL (12.0-16.0); Mean Corpuscular HGB CONC 30.7 g/dL (32.0-36.0); Mean Corpuscular Hemoglobin 29.7 pg (27.0-31.0); Mean Corpuscular Volume 96.6 fL (78.0-98.0); Mean Platelet Volume 7.4 fL (7.4-10.4); Platelet Count 207 thou/uL (130-400); RBC Distribution Width 13.2 % (11.5-14.5); Red Blood Cell (RBC) Count 3.76 mill/uL (4.20-5.40); White Blood Cell (WBC) Count 8.7 thou/uL (4.8-10.8)
[2022-03-23 05:00] LABS: Anion Gap 11 mmol/L (10-20); BUN (Urea Nitrogen) 38 mg/dL (9.8-20.1); Calc. Creatinine Clearance 60 mL/min (70-130); Carbon Dioxide 34 mmol/L (23-31); Chloride 92 mmol/L (98-107); Glucose 131 mg/dL (83-110); Potassium 3.4 mmol/L (3.5-5.1); Sodium 134 mmol/L (136-145)
[2022-03-23 07:49] LABS: Bilirubin Negative (Negative); Blood, Urine Negative (Negative); Clarity Clear (Clear); Glucose, Urine (Dipstick) Greater than 1000 mg/dL (Negative); Ketone, Urine Negative (Negative); Leukocyte 25 Leu/uL (Negative); Nitrite Negative (Negative); Protein, Urine (Dipstick) 50 mg/dL (Neg-Trace); RBC/HPF 0-3 HPF (0-3); Specific Gravity, Urine 1.019 (1.002-1.036); Urobilinogen Normal mg/dL (Less than 2)
[2022-03-23 07:50] LABS: Bacteria/HPF 1+ HPF (None Seen)
[2022-03-23 07:51] LABS: Urine Culture Reflex No No
[2022-03-23] MEDS ORDERED: guaiFENesin/Codeine 200 mg/20 mg 10 ml Cup PO PRN (09:00)
[2022-03-23] MEDS: Benzonatate 100 MG CAP PO SCH ×3 (09:43→21:30)
[2022-03-23] MEDS: guaiFENesin/DM ER PO SCH ×2 (09:45→21:33)
[2022-03-23] MEDS: hydrALAZINE 25 MG TAB PO SCH ×3 (09:45→21:32)
[2022-03-23] MEDS: Amlodipine 10 MG TAB PO SCH (09:45)
[2022-03-23] MEDS ORDERED: Potassium Chloride 20 MEQ TAB PO SCH (09:45)
[2022-03-23] MEDS: Valsartan 80 MG TAB PO SCH (09:45)
[2022-03-23] MEDS: Empagliflozin 10 MG TAB PO SCH (09:46)
[2022-03-23] MEDS: Metoprolol Tartrate 25 MG TAB PO SCH ×2 (09:46→21:32)
[2022-03-23] MEDS: Clopidogrel Bisulfate 75 MG TAB PO SCH (09:46)
[2022-03-23] MEDS: busPIRone HCl 10 MG TAB PO SCH ×2 (09:46→21:30)
[2022-03-23] MEDS: Folic Acid 1 MG TAB PO SCH (09:46)
[2022-03-23] MEDS: Enoxaparin Sodium 40 MG/0.4 ML SYRINGE SC SCH (09:47)
[2022-03-23] MEDS: Spironolactone 25 MG TAB PO SCH (09:52)
[2022-03-23 09:59] LABS: Magnesium 1.7 mg/dL (1.6-2.6)
[2022-03-23] MEDS: Cepastat Lozenges 1 LOZ PO PRN ×2 (10:00→23:21)
[2022-03-23] MEDS: Aquaphor 10 GM TUBE TOP SCH ×2 (10:07→21:29)
[2022-03-23 12:00] LABS: SARS-CoV-2 PCR by NAA Not Detected (NotDetected)
[2022-03-23] MEDS: HumaLOG 300 UNITS/3 ML VIAL SC PRN (12:46)
[2022-03-23] MEDS: Acetaminophen/Codeine 30-300mg Tablet PO PRN (13:10)
[2022-03-23] MEDS: Atorvastatin Calcium 40 MG TAB PO SCH (21:29)
[2022-03-23] MEDS: Gabapentin 300 MG CAP PO SCH (21:30)
[2022-03-24 04:17] LABS: #Eosinphils 0.2 thou/uL (0.0-0.7); #Monocytes 0.9 thou/uL (0.11-0.59); #Neutrophils 7.5 thou/uL (1.40-6.50); %Basophils 0.1 % (0.0-1.0); %Eosinophils 2.2 % (0.0-10.0); %Lymphocytes 10.6 % (21.0-51.0); %Monocytes 9.5 % (0.0-10.0); %Neutrophils 77.6 % (42.0-75.0); Hemoglobin 12.1 g/dL (12.0-16.0); Mean Corpuscular HGB CONC 31.9 g/dL (32.0-36.0); Mean Corpuscular Hemoglobin 30.7 pg (27.0-31.0); Mean Corpuscular Volume 96.1 fL (78.0-98.0); Mean Platelet Volume 7.5 fL (7.4-10.4); Platelet Count 230 thou/uL (130-400); RBC Distribution Width 13.2 % (11.5-14.5); Red Blood Cell (RBC) Count 3.95 mill/uL (4.20-5.40); White Blood Cell (WBC) Count 9.6 thou/uL (4.8-10.8)
[2022-03-24 04:42] LABS: Anion Gap 12 mmol/L (10-20); BUN (Urea Nitrogen) 33 mg/dL (9.8-20.1); Calc. Creatinine Clearance 62 mL/min (70-130); Calcium 9.4 mg/dL (7.8-10.44); Carbon Dioxide 35 mmol/L (23-31); Chloride 94 mmol/L (98-107); Glucose 127 mg/dL (83-110); Potassium 3.8 mmol/L (3.5-5.1); Sodium 137 mmol/L (136-145)
[2022-03-24] MEDS: Metoprolol Tartrate 25 MG TAB PO SCH ×2 (08:57→20:44)
[2022-03-24] MEDS: Amlodipine 10 MG TAB PO SCH (08:57)
[2022-03-24] MEDS: hydrALAZINE 25 MG TAB PO SCH ×3 (08:57→20:44)
[2022-03-24] MEDS: Folic Acid 1 MG TAB PO SCH (08:58)
[2022-03-24] MEDS: Valsartan 80 MG TAB PO SCH (08:58)
[2022-03-24] MEDS: guaiFENesin/DM ER PO SCH ×2 (08:58→20:44)
[2022-03-24] MEDS: Spironolactone 25 MG TAB PO SCH (08:58)
[2022-03-24] MEDS: Clopidogrel Bisulfate 75 MG TAB PO SCH (08:58)
[2022-03-24] MEDS: Furosemide 20 MG TAB PO SCH (08:59)
[2022-03-24] MEDS: busPIRone HCl 10 MG TAB PO SCH ×2 (08:59→20:43)
[2022-03-24] MEDS: Empagliflozin 10 MG TAB PO SCH (08:59)
[2022-03-24] MEDS: Benzonatate 100 MG CAP PO SCH ×3 (08:59→20:44)
[2022-03-24] MEDS: Aquaphor 10 GM TUBE TOP SCH ×2 (08:59→20:42)
[2022-03-24] MEDS: Enoxaparin Sodium 40 MG/0.4 ML SYRINGE SC SCH (09:00)
[2022-03-24] MEDS: HumaLOG 300 UNITS/3 ML VIAL SC PRN (12:08)
[2022-03-24] MEDS: Acetaminophen/Codeine 30-300mg Tablet PO PRN (12:35)
[2022-03-24] MEDS: hydrALAZINE 20 MG/ML VIAL SLOW IVP PRN (12:36)
[2022-03-24] MEDS: Gabapentin 300 MG CAP PO SCH (20:42)
[2022-03-24] MEDS: Atorvastatin Calcium 40 MG TAB PO SCH (20:42)
[2022-03-25] MEDS: Acetaminophen 325 MG TAB PO PRN (04:09)
[2022-03-25 04:10] LABS: #Monocytes 1.5 thou/uL (0.11-0.59); #Neutrophils 15.5 thou/uL (1.40-6.50); %Basophils 0.1 % (0.0-1.0); %Eosinophils 0.2 % (0.0-10.0); %Lymphocytes 5.4 % (21.0-51.0); %Monocytes 8.5 % (0.0-10.0); %Neutrophils 85.8 % (42.0-75.0); Hemoglobin 11.4 g/dL (12.0-16.0); Mean Corpuscular HGB CONC 31.8 g/dL (32.0-36.0); Mean Corpuscular Hemoglobin 30.3 pg (27.0-31.0); Mean Corpuscular Volume 95.2 fL (78.0-98.0); Mean Platelet Volume 7.7 fL (7.4-10.4); Platelet Count 211 thou/uL (130-400); RBC Distribution Width 13.1 % (11.5-14.5); Red Blood Cell (RBC) Count 3.76 mill/uL (4.20-5.40); White Blood Cell (WBC) Count 18.1 thou/uL (4.8-10.8)
[2022-03-25] MEDS: Cepastat Lozenges 1 LOZ PO PRN (04:13)
[2022-03-25 04:29] LABS: Anion Gap 12 mmol/L (10-20); BUN (Urea Nitrogen) 30 mg/dL (9.8-20.1); Calc. Creatinine Clearance 62 mL/min (70-130); Calcium 9.1 mg/dL (7.8-10.44); Carbon Dioxide 33 mmol/L (23-31); Chloride 92 mmol/L (98-107); Glucose 146 mg/dL (83-110); Potassium 4.2 mmol/L (3.5-5.1); Sodium 133 mmol/L (136-145)
[2022-03-25] MEDS: HumaLOG 300 UNITS/3 ML VIAL SC PRN (06:22)
[2022-03-25 07:00] LABS: Bacteria/HPF 1+ HPF (None Seen); Bilirubin Negative (Negative); Blood, Urine Trace (Negative); Clarity Turbid (Clear); Glucose, Urine (Dipstick) Greater than 1000 mg/dL (Negative); Ketone, Urine Negative (Negative); Leukocyte 500 Leu/uL (Negative); Nitrite Negative (Negative); Protein, Urine (Dipstick) 100 mg/dL (Neg-Trace); Specific Gravity, Urine 1.019 (1.002-1.036); Squamous Epithelial None Seen HPF (0-3); Urobilinogen Normal mg/dL (Less than 2); WBC/HPF Greater than 50 HPF (0-3)
[2022-03-25] MEDS: Enoxaparin Sodium 40 MG/0.4 ML SYRINGE SC SCH (09:13)
[2022-03-25] MEDS: busPIRone HCl 10 MG TAB PO SCH (09:14)
[2022-03-25] MEDS: Valsartan 80 MG TAB PO SCH (09:14)
[2022-03-25] MEDS: Benzonatate 100 MG CAP PO SCH (09:14)
[2022-03-25] MEDS: Amlodipine 10 MG TAB PO SCH (09:15)
[2022-03-25] MEDS: Furosemide 20 MG TAB PO SCH (09:15)
[2022-03-25] MEDS: guaiFENesin/DM ER PO SCH (09:15)
[2022-03-25] MEDS: hydrALAZINE 25 MG TAB PO SCH (09:15)
[2022-03-25] MEDS: Folic Acid 1 MG TAB PO SCH (09:15)
[2022-03-25] MEDS: Clopidogrel Bisulfate 75 MG TAB PO SCH (09:16)
[2022-03-25] MEDS: Aquaphor 10 GM TUBE TOP SCH (09:16)
[2022-03-25] MEDS: Empagliflozin 10 MG TAB PO SCH (09:16)
[2022-03-25] MEDS: Spironolactone 25 MG TAB PO SCH (09:16)
[2022-03-25] MEDS: Metoprolol Tartrate 25 MG TAB PO SCH (09:16)
[2022-03-25 09:17] VITALS: BP 189/77
[2022-03-25 09:30] VITALS: TEMP 98.8
== END 2022-03-25 11:26 | DRG 291 ==
LOC: ERS 13:42 → 2NO 15:24 → UNDODISIN 03-18 13:45
PROVIDERS: ADMIT Family Medicine; ATTEND Family Medicine
DX: I13.0 Hypertensive heart and chronic kidney disease with heart failure and stage 1 through stage 4 chronic kidney disease, or unspecified chronic kidney disease (principal); J96.01 Acute respiratory failure with hypoxia; I50.43 Acute on chronic combined systolic (congestive) and diastolic (congestive) heart failure; J18.9 Pneumonia, unspecified organism; Z68.41 Body mass index [BMI] 40.0-44.9, adult; N18.4 Chronic kidney disease, stage 4 (severe); N17.9 Acute kidney failure, unspecified; I47.2 Ventricular tachycardia; Z66 Do not resuscitate; Z20.822 Contact with and (suspected) exposure to COVID-19; E86.0 Dehydration; E78.5 Hyperlipidemia, unspecified; E11.51 Type 2 diabetes mellitus with diabetic peripheral angiopathy without gangrene; E11.22 Type 2 diabetes mellitus with diabetic chronic kidney disease; E11.40 Type 2 diabetes mellitus with diabetic neuropathy, unspecified; I48.91 Unspecified atrial fibrillation; Z96.653 Presence of artificial knee joint, bilateral; I16.0 Hypertensive urgency; M19.90 Unspecified osteoarthritis, unspecified site; I44.1 Atrioventricular block, second degree; E66.01 Morbid (severe) obesity due to excess calories; G47.33 Obstructive sleep apnea (adult) (pediatric); I35.0 Nonrheumatic aortic (valve) stenosis; D63.1 Anemia in chronic kidney disease; I27.20 Pulmonary hypertension, unspecified; Z86.73 Personal history of transient ischemic attack (TIA), and cerebral infarction without residual deficits; Z79.899 Other long term (current) drug therapy; I25.2 Old myocardial infarction; Z91.19 Patient's noncompliance with other medical treatment and regimen; R30.0 Dysuria
CPT/HCPCS: 36415; 36416; 51701; 71045; 76770; 80048; 80053; 81001; 81003; 81015; 82550; 83605; 83690; 83735; 83880; 84100; 84145; 84484; 85025; 87040; 93005; 93010; 93306; 96374; J0360; J1650; J1815; J1940; J7030; U0003; U0005